=== PATIENT | female | born 1945 | race African-American/Black ===

== ENCOUNTER 2019-11-14 08:06 | Emergency (ER) | payer MEDICARE, SELFPAY ==
[2019-11-14 08:19] VITALS: BP 165/76; PULSE 108; RESP 18; TEMP 36.7; O2SAT 100
[2019-11-14 08:53] LABS: Basophils Percent Auto 0.4 % (0.2-1.2); Eosinophils Absolute Auto 0.1 K/mm3 (0-0.3); Eosinophils Percent Auto 0.8 % (0-4.4); Hematocrit 31.3 % (37.0-47.0); Hemoglobin 10.4 g/dL (12.0-15.0); Immature Granulocyte Absolute 0.02 K/mm3 (0.00-0.031); Immature Granulocyte Percent A 0.2 % (0-0.5); Lymphocytes Absolute Auto 2.23 K/mm3 (0.9-3.2); Lymphocytes Percent Auto 21.4 % (18.3-44.2); Mean Corpuscular HGB Conc 33.2 g/dl (32-36); Mean Corpuscular Volume 78.3 fl (80-100); Mean Platelet Volume 11.1 fl (7.4-10.4); Monocytes Absolute Auto 0.8 K/mm3 (0.1-0.6); Neutrophils Absolute Auto 7.2 K/mm3 (1.3-6.7); Neutrophils Percent Auto 69.2 % (45.5-73.1); Platelet Count Result 356 k/mm3 (150-375); Red Cell Distribution Width 14.8 % (11.5-14.5); White Blood Count 10.4 K/mm3 (4.5-10.0)
[2019-11-14 09:07] LABS: Alanine Aminotransferase 10 U/L (4-35); Albumin Level 4.5 g/dL (3.5-5.1); Alkaline Phosphatase 55 U/L (38-126); Aspartate Amino Transferase 19 U/L (14-36); Bilirubin,Total 0.2 mg/dL (0.2-1.3); Blood Urea Nitrogen 29 mg/dL (7-17); Calcium 9.5 mg/dL (8.4-10.2); Carbon Dioxide 23 mmol/L (22-30); Chloride 103 mmol/L (98-107); Estimated CRCL calculation 30 ml/min; Estimated Glomerular Filt Rate 41; Glucose 141 mg/dL (65-105); Potassium 3.5 mmol/L (3.4-5.0); Sodium 139 mmol/L (137-145)
[2019-11-14] MEDS: METOCLOPRAMIDE HCL 10 MG TABLET PO (09:21)
[2019-11-14 09:23] LABS: Hemoglobin A1C 6.1 % (<5.7)
--- NOTE | 2019-11-14 09:34 | ED.GENADULT ---
HPI - General Adult General Chief complaint: Unspecified Stated complaint: issues with diabetes Time Seen by Provider: 11/14/19 08:23 History of Present Illness HPI narrative: Patient presents with does not feel right he says for about a week she has had increased numbness and tingling in her feet, and nausea with no vomiting. She also complains of rocks in her eyes. 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 Since COVID she has been staying at home with self-isolation. She has been drinking a little bit of 1, and having some good food. She thought maybe she had overindulged, and started to cut back. Her last hemoglobin A1c was 6.5. And she has not been diagnosed with diabetic peripheral neuropathy. She has not been sick with fever cough cold chills or sweats. Her appetite is good her bowels are moving and she makes good urine. She does not smoke or use marijuana. Her follow-up appointment with her primary is in November. Onset (ago): day(s) Location: eyes, abdomen and lower extremity Severity: mild Related Data Home Medications Medication Instructions Recorded Confirmed amlodipine 10 mg PO DAILY 11/14/19 aspirin 81 mg PO DAILY 11/14/19 metformin 1,000 mg PO BID 11/14/19 simvastatin 20 mg PO DAILY 11/14/19 sitagliptin [Januvia] 100 mg PO DAILY 11/14/19 valsartan-hydrochlorothiazide 1 tablet PO DAILY 11/14/19 Allergies Allergy/AdvReac Type Severity Reaction Status Date / Time ampicillin Allergy Unknown itching Verified 11/14/19 08:25 phenylephrine Allergy Unknown burning Verified 11/14/19 08:25 Review of Systems Review of Systems: Narrative: CONSTITUTIONAL: Denies fever, chills, or sweats. EYES: Denies visual changes, or discharge. Says her eyes feel like they have rocks in them. ENT: Denies rhinorrhea, congestion, sore throat, or otalgia. CARDIOVASCULAR: Denies chest pain, palpitations, or edema. RESPIRATORY: Denies cough or dyspnea. GASTROINTESTINAL: Denies abdominal pain, vomiting, or diarrhea. GENITOURINARY: Denies dysuria or hematuria. SKIN: Denies rash or itching. MUSCULOSKELETAL: Denies back pain, joint pain, or myalgia. NEUROLOGIC: Denies headache, numbness, or weakness. PSYCHIATRIC: Denies anxiety or depression. All systems reviewed & are unremarkable except as noted in HPI and below PMFSH Past Medical History Medical History (Updated 11/14/19 @ 10:28 by Sheridan Harvey MD) Diabetes Hypertension Peripheral neuropathy Family History Family History Father Family history of Alzheimer's disease, Onset Age: 86 Family history of heart disease in male family member before age 55, Onset Age: 86 Patient's father is , Onset Age: 86 Mother Family history of diabetes mellitus in first degree relative Family history of congestive heart failure Family history of hearing loss Sibling Family history of malignant neoplasm of breast in first degree relative Social History Social History (Updated 11/14/19 @ 09:38 by Sheridan Harvey MD) Smoking status: Never smoker Alcohol intake: current Substance use: never Gender identity (if verbalized by the patient): Female Exam Narrative: Exam Narrative: GENERAL: Well-appearing, well-nourished, and in no acute distress. HEAD: Normocephalic, atraumatic. EYES: PERRLA and EOMI. slight redness to the sclera. ENT: Nares clear, no rhinorrhea or epistaxis. Mucous membranes moist. NECK: Supple. CHEST: Clear to auscultation. No respiratory distress. HEART: Regular rate and rhythm. No murmur heard. Normal peripheral pulses. ABDOMEN: Soft, nontender, nondistended, normal active bowel sounds. EXTREMITIES: Normal range of motion. No edema. SKIN: Warm, dry, no rash. NEURO: No focal deficits. Alert and oriented x3. PSYCH: Normal mood and affect. Course Vital Signs Vital signs: Vital Signs Temperature 98.1 F 11/14/19 08:19 Pulse Rate 108 H 11/14/19 08:19 Respi
[2019-11-14 09:39] LABS: Erythrocyte Sedimentation Rate 38 mm/hr (0-20)
--- NOTE | 2019-11-14 09:39 | ECG_ITS ---
Measurements Intervals Lena Rate: 85 P: 61 [place]: 199 QRS: 38 QRSD: 85 T: -14 QT: 374 QTc: 446 Interpretive Statements SINUS RHYTHM BASELINE WANDER- I, II, V3 NORMAL ECG Electronically Signed On 11-14-2019 13:01:21 CDT by Jim Chua D.O.
[2019-11-14 10:05] LABS: Add Urine Microscopic? YES; Appearance Urine Clear (Clear); Bilirubin Urine Negative (Negative); Blood Urine Negative (Negative); Color Urine Straw (Yellow); Glucose Urine UA Negative (Negative); Ketones Urine Negative (Negative); Leukocyte Esterase Ur Trace LEU/UL (Negative); Mucus Urine Rare /lpf; Nitrate Urine Negative (Negative); Protein Urine Negative (Negative); RBC Urine 0-2 /hpf (0-2); Specific Grav Ur 1.013 (1.001-1.035); Squamous Epithelial Cell Urine Few /hpf (Few); Urobilinogen Urine Negative mg/dL (<2.0)
[2019-11-14 10:52] VITALS: BP 130/73; PULSE 104; RESP 18; O2SAT 100
== END 2019-11-14 10:56 | disposition home or self-care (01) ==
PROVIDERS: Emergency Provider Emergency Medicine; PCP Internal Medicine
DX: R70.0 Elevated erythrocyte sedimentation rate (principal); R11.0 Nausea; I10 Essential (primary) hypertension; E11.42 Type 2 diabetes mellitus with diabetic polyneuropathy; Z79.84 Long term (current) use of oral hypoglycemic drugs
CPT/HCPCS: 36415; 80053; 81001; 83036; 85025; 85652; 93005; 99283; A9270

== ENCOUNTER 2019-11-16 09:13 | Outpatient (CLI) | payer MEDICARE, SELFPAY ==
--- NOTE | ~2019-11-16 | MM_ITS ---
EXAMINATION: MM screening josé miguel BI w elke HISTORY: Screening mammogram TECHNIQUE: Craniocaudal and mediolateral oblique 3-D tomosynthesis images were obtained and synthetic 2-D images were generated. CAD analysis was submitted and interpreted. COMPARISON: 11/10/2018, 11/15/2017 bilateral digital screening mammogram examinations BREAST PARENCHYMAL COMPOSITION: There are scattered areas of fibroglandular density. FINDINGS: There is no evidence of suspicious mass, calcification, or architectural distortion to sugg est malignancy in either breast. There has been no suspicious interval change. IMPRESSION: 1. No mammographic evidence of malignancy. 2. Recommend routine screening mammography in one year. BI-RADS Category 1: Negative Reviewed, dictated and finalized at location A.
== END 2019-11-16 09:14 | disposition home or self-care (01) ==
LOC: ANHIMG 09:18
PROVIDERS: PCP Internal Medicine; Visit Provider Internal Medicine
DX: Z12.31 Encounter for screening mammogram for malignant neoplasm of breast (principal)
CPT/HCPCS: 77063; 77067

== ENCOUNTER 2020-03-02 10:27 | Outpatient (CLI) | payer MEDICARE, SELFPAY ==
[2020-03-02 11:32] LABS: Basophils Percent Auto 0.3 % (0.2-1.2); Eosinophils Absolute Auto 0.2 K/mm3 (0-0.3); Eosinophils Percent Auto 1.7 % (0-4.4); Hematocrit 29.7 % (37.0-47.0); Hemoglobin 9.9 g/dL (12.0-15.0); Immature Granulocyte Absolute 0.03 K/mm3 (0.00-0.031); Immature Granulocyte Percent A 0.3 % (0-0.5); Lymphocytes Absolute Auto 2.71 K/mm3 (0.9-3.2); Mean Corpuscular HGB Conc 33.3 g/dl (32-36); Mean Corpuscular Hemoglobin 26.1 pg (26-34); Mean Corpuscular Volume 78.2 fl (80-100); Mean Platelet Volume 10.7 fl (7.4-10.4); Monocytes Absolute Auto 0.8 K/mm3 (0.1-0.6); Monocytes Percent Auto 8.1 % (2.6-8.5); Neutrophils Absolute Auto 6.6 K/mm3 (1.3-6.7); Neutrophils Percent Auto 63.6 % (45.5-73.1); Platelet Count Result 354 k/mm3 (150-375); Red Cell Distribution Width 14.6 % (11.5-14.5); White Blood Count 10.4 K/mm3 (4.5-10.0)
[2020-03-02 11:55] LABS: Alanine Aminotransferase 9 U/L (4-35); Albumin Level 4.2 g/dL (3.5-5.1); Alkaline Phosphatase 49 U/L (38-126); Anion Gap 9 mmol/L (8-16); Aspartate Amino Transferase 20 U/L (14-36); Bilirubin,Total 0.2 mg/dL (0.2-1.3); Blood Urea Nitrogen 26 mg/dL (7-17); Calcium 9.3 mg/dL (8.4-10.2); Carbon Dioxide 25 mmol/L (22-30); Chloride 103 mmol/L (98-107); Estimated Glomerular Filt Rate 49; Glucose 140 mg/dL (65-105); Potassium 3.9 mmol/L (3.4-5.0); Sodium 137 mmol/L (137-145)
== END 2020-03-02 10:28 | disposition home or self-care (01) ==
PROVIDERS: PCP Internal Medicine; Visit Provider Internal Medicine
DX: L29.9 Pruritus, unspecified (principal)
CPT/HCPCS: 36415; 80053; 85025

== ENCOUNTER 2020-05-04 09:50 | Outpatient (CLI) | payer MEDICARE, SELFPAY ==
[2020-05-04 10:28] LABS: CRP < 0.5 mg/dL (<1.0)
[2020-05-04 10:36] LABS: Iron 51 ug/dL (37-170)
[2020-05-04 10:45] LABS: Percent Iron Saturation 11 % (20-50)
[2020-05-07 16:30] LABS: SS-A <1.0; SS-B <1.0
[2020-05-08 05:12] LABS: Red Blood Cell Folate 659 ng/mL RBC (>280)
== END 2020-05-04 09:51 | disposition home or self-care (01) ==
LOC: ANHLAB 09:52
PROVIDERS: PCP Internal Medicine; Visit Provider Internal Medicine
DX: E50.7 Other ocular manifestations of vitamin A deficiency (principal); D64.9 Anemia, unspecified
CPT/HCPCS: 36415; 82607; 82747; 83540; 83550; 86038; 86140; 86235

== ENCOUNTER → 2020-07-28 10:18 | Outpatient (CLI) | payer MEDICARE, SELFPAY ==
--- NOTE | ~2020-07-28 | DEXA_ITS ---
Bone Density Report Name: Amy Newman Age: 75 Sex: Female Ethnicity: White Date of : 1945 Indication: postmenopausal; screening for osteoporosis; Referring Provider: Coby Han Study: Bone densitometry was performed. Exam Date: July 28, 2020 Accession number: [id number] Bone Density: Region BMD T-score Z-score Classification AP Spine (L1-L4) 1.079 0.3 2.6 Normal Femoral Neck (Left) 0.756 -0.8 1.2 Normal Total Hip (Left) 0.899 -0.4 1.4 Normal Femoral Neck (Right) 0.867 0.2 2.2 Normal Total Hip (Right) 0.836 -0.9 0.9 Normal Total Hip Mean 0.868 -0.7 1.2 Normal World Health Organization criteria for BMD impression classify patients as: Normal (T-score at or above -1.0), Osteopenia (T-score between -1.0 and -2.5), or Osteoporosis (T-score at or below -2.5). 10-year Fracture Risk: FRAX not reported because: All T-scores for Spine Total, Hip Total, Femoral Neck at or above -1.0 Clinical Information Provided by Patient: Patient maximum height was 61 Menopause Age: 51 Does not regularly consume dairy products Drinks caffeinated beverages Onset of menses at age 15 Number of children 1 Impression: The patient has normal bone mass. Discussion: BONE DENSITY IS ABOVE THE MINIMUM DESIRABLE LEVEL AT ALL SKELETAL SITES TESTED. This patient?s bone mineral density is above the minimum desirable level (T-score -1.0 or better) at all sites measured. The patient should follow a healthful lifestyle (good nutrition with adequate calcium and vitamin D, and appropriate weight-bearing exercise). Follow-Up: Consider repeating this study in 5 years or sooner if there is some new clinical indication. Reported by: CELSO on 07/28/2020 10:48:00 AM. Reviewed, dictated and finalized at location A. [facility]
== END ==
PROVIDERS: PCP Internal Medicine; Visit Provider Nurse Practitioner
DX: Z78.0 Asymptomatic menopausal state (principal)
CPT/HCPCS: 77080

== ENCOUNTER 2020-12-06 13:48 | Outpatient (CLI) | payer MEDICARE, SELFPAY ==
--- NOTE | ~2020-12-06 | MM_ITS ---
EXAMINATION: MM screening josé miguel BI w elke HISTORY: Screening mammogram TECHNIQUE: Craniocaudal and mediolateral oblique 3-D tomosynthesis images were obtained and synthetic 2-D images were generated. CAD analysis was submitted and interpreted. COMPARISON: No prior mammogram is available for comparison at this institution. BREAST PARENCHYMAL COMPOSITION: There are scattered areas of fibroglandular density. FINDINGS: Occasional bilateral benign calcifications. Stable mild fibroglandular asymmetry There is n o evidence of suspicious mass, calcification, or architectural distortion to suggest malignancy in ei ther breast. There has been no suspicious interval change. IMPRESSION: 1. No mammographic evidence of malignancy. 2. Recommend routine screening mammography in one year. BI-RADS Category 2: Benign finding(s). Reviewed, dictated and finalized at location A.
== END 2020-12-06 13:49 | disposition home or self-care (01) ==
PROVIDERS: PCP Internal Medicine; Visit Provider Nurse Practitioner
DX: Z12.31 Encounter for screening mammogram for malignant neoplasm of breast (principal)
CPT/HCPCS: 77063; 77067

== ENCOUNTER 2021-02-21 09:24 | Outpatient (CLI) | payer MEDICARE, SELFPAY ==
--- NOTE | ~2021-02-21 | MR_ITS ---
EXAMINATION: MR cervical spine wo con DATE: 02/21/2021 10:25 INDICATION: Disease of spinal cord, unspecified. Tingling in the neck. TECHNIQUE: Magnetic resonance imaging (MRI) of the cervical spine was performed without intravenous c ontrast. Sequences included sagittal T2-weighted FSE, sagittal T2-weighted FS FSE, sagittal T1-weight ed FSE, axial MERGE, and axial T2-weighted FSE. COMPARISON: None FINDINGS: There is hypolordosis of cervical spine. Vertebral body heights and intervertebral disc hei ghts are normal. There is increased T2-weighted signal intensity in the spinal cord at the posterior midline at C2. The following disc levels are specifically discussed: C2-C3: The disc does not extend beyond the endplate margin. There is no uncovertebral joint osteoarth ritis. There is mild bilateral facet joint osteoarthritis. There is no neural foraminal stenosis. The re is no central canal stenosis. C3-C4: There is a central protrusion. There is mild bilateral uncovertebral joint osteoarthritis. The re is mild left facet joint osteoarthritis. There is no neural foraminal stenosis. There is mild cent ral canal stenosis. C4-C5: The disc is mildly bulging. There is mild bilateral uncovertebral joint osteoarthritis. There is mild right facet joint osteoarthritis. There is no neural foraminal stenosis. There is mild centra l canal stenosis. C5-C6: The disc is mildly bulging. There is mild bilateral uncovertebral joint osteoarthritis. There is mild bilateral facet joint osteoarthritis. There is no neural foraminal stenosis. There is mild ce ntral canal stenosis. C6-C7: The disc does not extend beyond the endplate margin. There is no uncovertebral joint osteoarth ritis. There is mild left facet joint osteoarthritis. There is no neural foraminal stenosis. There is no central canal stenosis. C7-T1: The disc does not extend beyond the endplate margin. There is no uncovertebral joint osteoarth ritis. There is mild left facet joint osteoarthritis. There is mild left neural foraminal stenosis. T here is no central canal stenosis. IMPRESSION: 1. Spinal cord lesion at C2. The differential diagnosis includes multiple sclerosis, acute transverse myelitis, and less likely neoplasm such as astrocytoma or ependymoma. 2. Mild cervical spondylosis. Reviewed, dictated and finalized at location A. IMPRESSION: 1. Spinal cord lesion at C2. The differential diagnosis includes multiple scler osis, acute transverse myelitis, and less likely neoplasm such as astrocytoma o r ependymoma. 2. Mild cervical spondylosis.
== END 2021-02-21 09:25 | disposition home or self-care (01) ==
LOC: ANHIMG 09:28
PROVIDERS: PCP Internal Medicine; Visit Provider Psychiatry & Neurology Neurology
DX: G95.9 Disease of spinal cord, unspecified (principal); M47.892 Other spondylosis, cervical region
CPT/HCPCS: 72141

== ENCOUNTER 2022-01-05 15:23 | Outpatient (CLI) | payer MEDICARE, SELFPAY ==
--- NOTE | ~2022-01-05 | MM_ITS ---
EXAMINATION: MM screening josé miguel BI w elke HISTORY: Screening TECHNIQUE: Craniocaudal and mediolateral oblique 3-D tomosynthesis images were obtained and synthetic 2-D images were generated. CAD analysis was submitted and interpreted. COMPARISON: 11/05/2017 BREAST PARENCHYMAL COMPOSITION: There are scattered areas of fibroglandular density. FINDINGS: There is no evidence of suspicious mass, calcification, or architectural distortion to sugg est malignancy in either breast. There has been no suspicious interval change. IMPRESSION: 1. No mammographic evidence of malignancy. 2. Recommend routine screening mammography in one year. BI-RADS Category 1: Negative Reviewed, dictated and finalized at location A.
== END 2022-01-05 15:24 | disposition home or self-care (01) ==
LOC: ANHIMG 15:26
PROVIDERS: PCP Internal Medicine; Visit Provider Internal Medicine
DX: Z12.31 Encounter for screening mammogram for malignant neoplasm of breast (principal)
CPT/HCPCS: 77063; 77067

== ENCOUNTER 2022-08-27 17:36 | Emergency (ER) | payer MEDICARE, SELFPAY ==
--- NOTE | ~2022-08-27 | XR_ITS ---
EXAM: XR foot LT min 3V DATE: 08/27/2022 18:13 HISTORY: left lateral foot pain s/p walking 2 days ago . COMPARISON: 03/18/2019. FINDINGS: Decreased mineralization. No fracture or dislocation. No lytic or blastic lesion. Mild sca ttered degenerative changes. Achilles enthesopathy. No erosion or periosteal change. Soft tissues wit hin normal limits. IMPRESSION: No acute osseous finding in the left foot. Reviewed, dictated and finalized at location K. [employer]
[2022-08-27 17:45] VITALS: BP 149/84; PULSE 104; RESP 16; TEMP 37.2; O2SAT 98
--- NOTE | 2022-08-27 17:53 | ED.EXTPRO ---
HPI - Extremity Problem General Chief complaint: Extremity Problem,Nontraumatic Stated complaint: Left Foot Pain Time Seen by Provider: 08/27/22 17:53 Source: patient, RN notes reviewed and old records reviewed Mode of arrival: ambulatory Limitations: no limitations History of Present Illness HPI Narrative: 77-year-old female presents to the [facility] with complaints of left lateral foot pain since Saturday. Swelling noted to the lateral aspect left foot over metatarsals 3 4 in 5. Patient denies any significant injury other than walking. Patient states that she normally would does water aerobics and walking, walking through a park on Saturday. 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 Onset (ago): day(s) (2) Related Data Home Medications Medication Instructions Recorded Confirmed aspirin 81 mg chewable tablet 81 mg PO DAILY 11/14/19 06/12/22 ferrous sulfate 140 mg (45 mg 140 mg PO DAILY 07/12/20 06/12/22 iron) tablet,extended release brimonidine 0.2 %-timolol 0.5 % 1 drp EACH EYE ONCE 05/30/21 06/12/22 eye drops prednisolone acetate 1 % eye 1 drp EACH EYE ONCE 05/30/21 06/12/22 drops,suspension Allergies Allergy/AdvReac Type Severity Reaction Status Date / Time prednisone Allergy Intermediate Swelling Verified 08/27/22 17:59 of face and lips, pruritis in area ampicillin Allergy Mild swelling Verified 08/27/22 17:59 and itching phenylephrine Allergy Mild burning Verified 08/27/22 17:59 and swelling , red eyes Review of Systems Review of Systems: All systems reviewed & are unremarkable except as noted in HPI and below Constitutional: Constitutional: Reports no additional constitutional complaints Eyes: Eyes: Reports no additional eye complaints ENT: Reports system reviewed and no additional complaints, except as documented Cardiovascular: Cardiovascular: Reports no additional cardiovascular complaints, Denies chest pain and Denies dyspnea Respiratory: Respiratory: Reports no additional respiratory complaints, Denies chest congestion, Denies cough and Denies dyspnea Gastrointestinal: Gastrointestinal: Reports no additional gastrointestinal complaints, Denies abdominal pain, Denies nausea and Denies vomiting Musculoskeletal: Musculoskeletal: Reports as per HPI and Denies numbness Integumentary/Breasts: Skin/Breast: Reports system reviewed and no additional complaints, except as docu Neurologic: Reports system reviewed and no additional complaints, except as documented Psychiatric: Psychiatric: Reports no additional psychiatric complaints Allergic/Immunologic: Allergic/Immunologic: Reports no additional allergic/immunologic complaints PMF Past Medical History Medical History Colonic polyp Hypertension Paresthesia of skin Peripheral neuropathy Postmenopausal Screening for colon cancer Family History Family History Father Family history of Alzheimer's disease, Onset Age: 86 Family history of heart disease in male family member before age 55, Onset Age: 86 Patient's father is , Onset Age: 86 Mother Family history of diabetes mellitus in first degree relative Family history of congestive heart failure Family history of hearing loss Sibling Family history of malignant neoplasm of breast in first degree relative Social History Social History Smoking packs per day: 1 Smoking cigarettes per day: 20.0 Years smoked: 10 Smoking pack-years: 10.00 Smoking status: Former smoker Tobacco type: cigarettes Second hand tobacco smoke exposure: No Smoking end date: 07/01/09 Alcohol intake: current Drinks per week: 1 Substance use: never Substance use type: does not use Lack of Transportation: No Lack of Food: Never True Current Housing: I Have Housing Concerned About
[2022-08-27 18:02] LABS: Glucose Point of Care 154 mg/dl (65-105)
== END 2022-08-27 18:45 | disposition home or self-care (01) ==
PROVIDERS: Emergency Provider Nurse Practitioner; PCP Internal Medicine
DX: M79.672 Pain in left foot (principal); I10 Essential (primary) hypertension; E11.9 Type 2 diabetes mellitus without complications; Z87.891 Personal history of nicotine dependence
CPT/HCPCS: 73630; 82948; 99213; G0463

== ENCOUNTER 2023-03-29 13:45 | Outpatient (CLI) | payer MEDICARE, SELFPAY ==
--- NOTE | ~2023-03-29 | MM_ITS ---
EXAMINATION: MM screening josé miguel BI w elke HISTORY: Screening mammogram TECHNIQUE: Craniocaudal and mediolateral oblique 3-D tomosynthesis images were obtained and synthetic 2-D images were generated. CAD analysis was submitted and interpreted. COMPARISON: 01/05/2022, 12/06/2020, 11/16/2019 bilateral screening mammogram examinations BREAST PARENCHYMAL COMPOSITION: There are scattered areas of fibroglandular density. FINDINGS: There is no evidence of suspicious mass, calcification, or architectural distortion to sugg est malignancy in either breast. There has been no suspicious interval change. IMPRESSION: 1. No mammographic evidence of malignancy. 2. Recommend routine screening mammography in one year. BI-RADS Category 1: Negative Reviewed, dictated and finalized at location A.
== END 2023-03-29 13:46 | disposition home or self-care (01) ==
LOC: ANHIMG 14:08
PROVIDERS: PCP Nurse Practitioner Family; Visit Provider Family Medicine
DX: Z12.31 Encounter for screening mammogram for malignant neoplasm of breast (principal)
CPT/HCPCS: 77063; 77067

== ENCOUNTER 2023-04-04 06:17 | Emergency (ER) | payer MEDICARE, SELFPAY ==
--- NOTE | ~2023-04-04 | CT_ITS ---
CT of the Abdomen and Pelvis: Indication: Abdominal pain Technique: 2.5 mm axial scans were obtained through the abdomen and pelvis following intravenous adm inistration of 100 cc of Omnipaque 350. Dose reduction technique was used on this scan by utilizing a utomated exposure control and iterative reconstruction technique. The dose-length product (DLP) was 1 031.94 mGy-cm. Findings: Scans through the lung bases are unremarkable. The liver, spleen, pancreas, and adrenal glands are within normal limits. There is a 2.5 cm periphera lly calcified, probable saccular, aneurysm which appears to arise from the distal portion of the righ t renal artery, near the right renal hilum. There is a 3 mm nonobstructing left renal stone. Small ca lcified gallstone noted. No evidence of aortic aneurysm. No lymphadenopathy. No bowel obstruction or bowel wall thickening. Sigmoid diverticulosis noted. Normal appendix. Images through the pelvis were performed. Urinary bladder unremarkable. No pelvic mass seen. No ascit es. 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 Given size of the aneurysm, consultation/follow-up for endovascular therapy is barbara mmended. Cholelithiasis. 3 mm nonobstructing left renal stone. Reviewed, dictated and finalized at location . 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 Given size of the aneurysm, consultatio n/follow-up for endovascular therapy is recommended. Cholelithiasis. 3 mm nonobstructing left renal stone.
[2023-04-04 06:18] VITALS: BP 146/83; PULSE 106; RESP 16; TEMP 36.1; O2SAT 100
[2023-04-04 07:03] LABS: Basophils Absolute Auto 0.1 K/mm3 (0.0-0.1); Basophils Percent Auto 0.5 % (0.2-1.2); Eosinophils Absolute Auto 0.3 K/mm3 (0-0.3); Eosinophils Percent Auto 2.8 % (0-4.4); Hematocrit 36.7 % (37.0-47.0); Hemoglobin 12.4 g/dL (12.0-15.0); Immature Granulocyte Absolute 0.04 K/mm3 (0.00-0.031); Immature Granulocyte Percent A 0.4 % (0-0.5); Lymphocytes Absolute Auto 1.82 K/mm3 (0.9-3.2); Lymphocytes Percent Auto 17.2 % (18.3-44.2); Mean Corpuscular HGB Conc 33.8 g/dl (32-36); Mean Corpuscular Hemoglobin 27.8 pg (26-34); Mean Corpuscular Volume 82.3 fl (80-100); Mean Platelet Volume 11.1 fl (7.4-10.4); Monocytes Absolute Auto 0.8 K/mm3 (0.1-0.6); Monocytes Percent Auto 7.3 % (2.6-8.5); Neutrophils Absolute Auto 7.6 K/mm3 (1.3-6.7); Neutrophils Percent Auto 71.8 % (45.5-73.1); Platelet Count Result 354 k/mm3 (150-375); Red Blood Count 4.46 M/mm3 (4.2-5.4); Red Cell Distribution Width 13.2 % (11.5-14.5); White Blood Count 10.6 K/mm3 (4.5-10.0)
[2023-04-04] MEDS: MORPHINE SULFATE (*CRX) 4 MG/ML INJ IV PUSH (07:11)
[2023-04-04] MEDS: SODIUM CHLORIDE 0.9% IV 1,000 ML 999 ML IV CONT (07:12)
[2023-04-04] MEDS: ONDANSETRON INJ 4 MG/2 ML VIAL IV PUSH (07:12)
[2023-04-04 07:13] LABS: Alanine Aminotransferase 16 U/L (6-35); Albumin Level 4.4 g/dL (3.5-5.1); Alkaline Phosphatase 75 U/L (38-126); Anion Gap 10 mmol/L (8-16); Aspartate Amino Transferase 24 U/L (14-36); Bilirubin,Total 0.6 mg/dL (0.2-1.3); Blood Urea Nitrogen 27 mg/dL (7-17); Calcium 9.6 mg/dL (8.4-10.2); Carbon Dioxide 24 mmol/L (22-30); Chloride 106 mmol/L (98-107); Estimated CRCL calculation 33 ml/min; Estimated Glomerular Filt Rate 48; Glucose 206 mg/dL (65-110); Lipase 175 U/L (23-300); Potassium 3.8 mmol/L (3.4-5.0); Sodium 140 mmol/L (137-145)
[2023-04-04 07:46] LABS: Appearance Urine Clear (Clear); Bacteria Urine None Seen /hpf; Bilirubin Urine Negative (Negative); Blood Urine Trace (Negative); Color Urine Yellow (Yellow); Glucose Urine UA 3+ mg/dL (Negative); Ketones Urine Negative (Negative); Leukocyte Esterase Ur Negative LEU/UL (Negative); Nitrate Urine Negative (Negative); Non Pathogenic Casts 0-2; Protein Urine Negative (Negative); RBC Urine 0-2 /hpf (0-2); Specific Grav Ur 1.015 (1.001-1.035); Squamous Epithelial Cell Urine Occasional /hpf (Few); Urobilinogen Urine 0.2 mg/dL (<2.0); WBC Urine 0-5 /hpf; pH Urine 6.5 (5.0-9.0)
[2023-04-04 07:53] LABS: Add Urine Microscopic? YES
--- NOTE | 2023-04-04 09:25 | ED.ABDPAIN ---
HPI - Abdominal Pain General Chief Complaint: Abdominal Pain Stated Complaint: UTI on the , symptoms still present, N/V Time Seen by Provider: 04/04/23 06:57 History of Present Illness HPI narrative: This is a 77-year-old female, who comes in the emergency department complaining of lower abdominal cramping and right flank tenderness for the past several days. The patient states she was recently seen by her primary care doctor and given antibiotics for UTI and a fungal infection with improvement of her itching. She denies nausea, vomiting, chest pain, bleeding or loss of consciousness. Related Data Home Medications Medication Instructions Recorded Confirmed aspirin 81 mg chewable tablet 81 mg PO DAILY 11/14/19 03/27/23 ferrous sulfate 140 mg (45 mg 140 mg PO DAILY 07/12/20 03/27/23 iron) tablet,extended release brimonidine 0.2 %-timolol 0.5 % 1 drp EACH EYE ONCE 05/30/21 03/27/23 eye drops omega-3 fatty acids 1,000 mg 1,000 mg PO DAILY 09/26/22 03/27/23 capsule (Fish Oil Concentrate) Allergies Allergy/AdvReac Type Severity Reaction Status Date / Time prednisone Allergy Intermediate Swelling Verified 03/27/23 08:43 of face and lips, pruritis in area ampicillin Allergy Mild swelling Verified 03/27/23 08:43 and itching phenylephrine Allergy Mild burning Verified 03/27/23 08:43 and swelling , red eyes Review of Systems Review of Systems: CONSTITUTIONAL: Denies fever, chills, or sweats. CARDIOVASCULAR: Denies chest pain, palpitations, or edema. RESPIRATORY: Denies cough or dyspnea. GASTROINTESTINAL: Suprapubic abdominal pain denies nausea, vomiting, or diarrhea. GENITOURINARY: Denies dysuria or hematuria. SKIN: Denies rash or itching. MUSCULOSKELETAL: Denies back pain, joint pain, or myalgia. NEUROLOGIC: Denies headache, numbness, dizziness, or weakness. PSYCHIATRIC: Denies anxiety or depression. [facility] Past Medical History Medical History Colonic polyp Hypertension Paresthesia of skin Peripheral neuropathy Postmenopausal Screening for colon cancer Family History Family History Father Family history of Alzheimer's disease, Onset Age: 86 Family history of heart disease in male family member before age 55, Onset Age: 86 Patient's father is , Onset Age: 86 Mother Family history of diabetes mellitus in first degree relative Family history of congestive heart failure Family history of hearing loss Sibling Family history of malignant neoplasm of breast in first degree relative Social History Social History Smoking packs per day: 0.25 Smoking cigarettes per day: 5.0 Years smoked: 10 Smoking pack-years: 2.50 Smoking status: Former smoker Tobacco type: cigarettes Second hand tobacco smoke exposure: No Smoking end date: 07/01/09 Alcohol intake: current Drinks per week: 1 Alcohol use details: occasionally Substance use: never Substance use type: does not use Lack of Transportation: No Lack of Food: Never True Current Housing: I Have Housing Concerned About Future Housing: No Difficulty Paying Gas/Electric Bills: No Difficulty Paying for Meds: No Currently Unemployed: No Education: Decline to Answer Difficulty w/ Childcare or Family Care: No Gender identity (if verbalized by the patient): Female Exam Narrative: GENERAL: Well-developed, well-nourished, and in no acute distress. HEAD: Normocephalic, atraumatic. EYES: PERRLA and EOMI. CHEST: Clear to auscultation. No respiratory distress. No wheezes rales or rhonchi HEART: Regular rate and rhythm. No murmur heard. Normal peripheral pulses. ABDOMEN: Soft, mild suprapubic tenderness to palpation, without rebound or guarding, nondistended, normal active bowel sounds. N
[2023-04-04 09:31] VITALS: BP 152/76; PULSE 88; RESP 17; O2SAT 100
[2023-04-04 09:34] VITALS: O2SAT 100
[2023-04-04 09:45] VITALS: O2SAT 100
[2023-04-04 10:21] VITALS: BP 123/70
== END 2023-04-04 10:22 | disposition home or self-care (01) ==
PROVIDERS: Emergency Medicine; Emergency Provider Preventive Medicine Aerospace Medicine; PCP Nurse Practitioner Family
DX: I72.2 Aneurysm of renal artery (principal); R22.2 Localized swelling, mass and lump, trunk; R39.9 Unspecified symptoms and signs involving the genitourinary system; I10 Essential (primary) hypertension; G62.9 Polyneuropathy, unspecified; Z86.010 Personal history of colon polyps; Z87.891 Personal history of nicotine dependence; Z79.82 Long term (current) use of aspirin
CPT/HCPCS: 36415; 74177; 80053; 81001; 83690; 85025; 96361; 96374; 96375; 99284; J2270; J2405; J7030; Q9967

== ENCOUNTER 2023-04-18 10:28 | Outpatient (CLI) | payer MEDICARE, SELFPAY ==
--- NOTE | ~2023-04-18 | CT_ITS ---
EXAMINATION: CT biopsy muscle DATE: 04/18/2023 12:24 INDICATION: Cutaneous abscess of buttock. TECHNIQUE: The procedure including the risks and benefits was discussed with the patient. Risks discu ssed included bleeding and infection. The patient understood the risks and agreed to proceed. The sk in overlying the right buttock was prepped and draped in usual sterile fashion. Anesthetic was admin istered with 1% lidocaine subcutaneously. A pair of 16 gauge outer needles advanced under CT guidance to the age of the 2 regions of soft tissue density within the larger macroscopic fat attenuation sub cutaneous mass at the right buttock. 18 gauge core biopsy needles were then advanced through the guid e needle was into both of the soft tissue density regions of concern. 5 core biopsy specimens were ob tained from each lesion and placed in formalin. During the biopsy there was spontaneous reflux of a s mall amount of opaque yellowish cream-colored fluid which was then aspirated from the needle. A total of approximately 2 mm of fluid was collected and sent to the lab for cytology, Gram stain and cultur es. The outer needles were removed and the entry right shoulder cleaned and dressed. There were no i mmediate complications. The dose-length product was 102.62 mGy-cm. FINDINGS: CT images demonstrate a 16 x 6 cm macroscopic fat attenuation mass with nearly indiscernibl e thin peripheral capsule. Sagittal images demonstrate one of the outer needle tips along side the sm aller and more lateral of soft tissue density within the fatty mass. The second guide needle tip is a long side the larger 3.7 x 2.4 cm nodular density within the fatty mass which demonstrates heterogene ous soft tissue and calcific density. IMPRESSION: 1. Successful CT-guided biopsy of 2 regions of soft tissue density within a larger 16 x 6 cm macrosco pic fat attenuation mass. Reviewed, dictated and finalized at location A. IMPRESSION: 1. Successful CT-guided biopsy of 2 regions of soft tissue density within a lar sixto 16 x 6 cm macroscopic fat attenuation mass.
[2023-04-18 12:30] VITALS: BP 133/77; PULSE 70; RESP 19; O2SAT 100
[2023-04-18 12:31] VITALS: BP 137/111; PULSE 75; RESP 19; O2SAT 97
== END 2023-04-18 10:29 | disposition home or self-care (01) ==
PROVIDERS: PCP Nurse Practitioner Family; Visit Provider Nurse Practitioner Family
DX: L02.31 Cutaneous abscess of buttock (principal); R22.2 Localized swelling, mass and lump, trunk
CPT/HCPCS: 20206; 77012; 87070; 87075; 87205; 88108; 88305

== ENCOUNTER 2023-04-23 17:20 | Emergency (ER) | payer MEDICARE, SELFPAY ==
[2023-04-23 17:31] VITALS: BP 171/74; PULSE 113; RESP 16; TEMP 37.7; O2SAT 100
[2023-04-23 17:44] LABS: Glucose Point of Care 103 mg/dl (65-105)
--- NOTE | 2023-04-23 17:47 | ED.GENADULT ---
HPI - General Adult General Chief complaint: Nausea/Vomiting/Diarrhea Stated complaint: Nausea/Vomiting Time Seen by Provider: 04/23/23 17:47 Source: patient, RN notes reviewed and old records reviewed Mode of arrival: ambulatory Limitations: no limitations History of Present Illness HPI narrative: 77-year-old female with a history diabetes, presents for 24 hours nausea vomiting and abdominal pain. Tender right upper quadrant. Currently dry heaving. Has not eaten anything since yesterday. Appears mildly ill Denies any urinary symptoms. Denies chest pain or shortness of breath. Onset (ago): day(s) (1) Related Data Home Medications Medication Instructions Recorded Confirmed aspirin 81 mg chewable tablet 81 mg PO DAILY 11/14/19 04/23/23 ferrous sulfate 140 mg (45 mg 140 mg PO DAILY 07/12/20 04/23/23 iron) tablet,extended release brimonidine 0.2 %-timolol 0.5 % 1 drp EACH EYE ONCE 05/30/21 04/23/23 eye drops omega-3 fatty acids 1,000 mg 1,000 mg PO DAILY 09/26/22 04/23/23 capsule (Fish Oil Concentrate) Allergies Allergy/AdvReac Type Severity Reaction Status Date / Time prednisone Allergy Intermediate Swelling Verified 04/23/23 17:36 of face and lips, pruritis in area ampicillin Allergy Mild swelling Verified 04/23/23 17:36 and itching phenylephrine Allergy Mild burning Verified 04/23/23 17:36 and swelling , red eyes Review of Systems Review of Systems: All systems reviewed & are unremarkable except as noted in HPI and below Constitutional: Constitutional: Reports no additional constitutional complaints Eyes: Eyes: Reports no additional eye complaints ENT: Reports system reviewed and no additional complaints, except as documented Cardiovascular: Cardiovascular: Reports no additional cardiovascular complaints, Denies chest pain and Denies dyspnea Respiratory: Respiratory: Reports no additional respiratory complaints, Denies chest congestion, Denies cough and Denies dyspnea Gastrointestinal: Gastrointestinal: Reports as per HPI, Reports abdominal pain, Reports diarrhea, Reports nausea and Reports vomiting Musculoskeletal: Musculoskeletal: Reports no additional musculoskeletal complaints Integumentary/Breasts: Skin/Breast: Reports system reviewed and no additional complaints, except as docu Neurologic: Reports system reviewed and no additional complaints, except as documented Psychiatric: Psychiatric: Reports no additional psychiatric complaints Allergic/Immunologic: Allergic/Immunologic: Reports no additional allergic/immunologic complaints PMFSH Past Medical History Medical History (Updated 04/23/23 @ 18:02 by Olivia Vasquez APRN) Anemia Colonic polyp Hypertension Paresthesia of skin Peripheral neuropathy Postmenopausal Screening for colon cancer Type 2 diabetes mellitus Family History Family History Father Family history of Alzheimer's disease, Onset Age: 86 Family history of heart disease in male family member before age 55, Onset Age: 86 Patient's father is , Onset Age: 86 Mother Family history of diabetes mellitus in first degree relative Family history of congestive heart failure Family history of hearing loss Sibling Family history of malignant neoplasm of breast in first degree relative Social History Social History Smoking packs per day: 0.25 Smoking cigarettes per day: 5.0 Years smoked: 10 Smoking pack-years: 2.50 Smoking status: Former smoker Tobacco type: cigarettes Second hand tobacco smoke exposure: No Smoking end date: 07/01/09 Alcohol intake: current Drinks per week: 1 Alcohol use details: occasionally Substance use: never Substance use type: does not use Lack of Transportation: No Lack of Food: Never True Current Housing: I Have Housing Concerned About Fut
== END 2023-04-23 17:56 | disposition short-term general hospital (02) ==
PROVIDERS: Emergency Provider Nurse Practitioner; PCP Family Medicine
DX: R11.2 Nausea with vomiting, unspecified (principal); R19.7 Diarrhea, unspecified; R10.811 Right upper quadrant abdominal tenderness; I10 Essential (primary) hypertension; Z87.891 Personal history of nicotine dependence; E11.42 Type 2 diabetes mellitus with diabetic polyneuropathy; D64.9 Anemia, unspecified; Z79.82 Long term (current) use of aspirin
CPT/HCPCS: 82948; 99212; G0463

== ENCOUNTER 2023-04-23 18:14 | Emergency (ER) | payer MEDICARE, SELFPAY ==
--- NOTE | ~2023-04-23 | CT_ITS ---
EXAMINATION: CT abdomen pelvis w con DATE: 04/23/2023 23:48 INDICATION: Right abdominal pain. Nausea and vomiting and diarrhea. TECHNIQUE: Computed tomography (CT) of the abdomen and pelvis was performed with 100 mL Omnipaque 350 intravenous contrast. Automated exposure control and iterative reconstruction technique were employe d. The dose-length product was 984.85 mGy-cm. COMPARISON: CT abdomen and pelvis 04/04/2023 FINDINGS: The visualized portions of the lung bases demonstrate mild atelectasis and mild chronic walter g disease. No pleural effusion. The heart size is normal. No pericardial effusion. There is a small s liding hiatal hernia. The liver is normal. There is a gallstone in the gallbladder, which is normal i n size. The spleen, pancreas, and adrenal glands are normal. There is cortical thinning of the kidney s. 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 There is diverticulosis of the colon wi thout evidence of diverticulitis. There are no dilated loops of bowel. The appendix is normal. There are no pathologically enlarged lymph nodes. There is no free intraperitoneal fluid. There is a 16.2 x 5.8 cm subcutaneous mass in right buttock with areas of soft tissue attenuation and calcification, l ikely a lipoma with fat necrosis. There are no pathologically enlarged lymph nodes. There is no free intraperitoneal fluid. There is mild thoracic and lumbar spondylosis. IMPRESSION: 1. Small sliding hiatal hernia. 2. 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 Consider endovascular intervention. Reviewed, dictated and finalized at location E.
[2023-04-23 18:50] VITALS: BP 164/89; PULSE 111; RESP 20; TEMP 36.3; O2SAT 98
[2023-04-23 19:11] LABS: Basophils Percent Auto 0.1 % (0.2-1.2); Eosinophils Absolute Auto 0.1 K/mm3 (0-0.3); Eosinophils Percent Auto 0.9 % (0-4.4); Hematocrit 38.7 % (37.0-47.0); Hemoglobin 12.9 g/dL (12.0-15.0); Immature Granulocyte Absolute 0.03 K/mm3 (0.00-0.031); Immature Granulocyte Percent A 0.3 % (0-0.5); Lymphocytes Absolute Auto 1.95 K/mm3 (0.9-3.2); Lymphocytes Percent Auto 16.8 % (18.3-44.2); Mean Corpuscular HGB Conc 33.3 g/dl (32-36); Mean Corpuscular Hemoglobin 27.7 pg (26-34); Mean Corpuscular Volume 83.2 fl (80-100); Mean Platelet Volume 11.1 fl (7.4-10.4); Monocytes Absolute Auto 1.1 K/mm3 (0.1-0.6); Monocytes Percent Auto 9.4 % (2.6-8.5); Neutrophils Absolute Auto 8.4 K/mm3 (1.3-6.7); Neutrophils Percent Auto 72.5 % (45.5-73.1); Platelet Count Result 340 k/mm3 (150-375); Red Blood Count 4.65 M/mm3 (4.2-5.4); Red Cell Distribution Width 13.9 % (11.5-14.5); White Blood Count 11.6 K/mm3 (4.5-10.0)
[2023-04-23 19:20] LABS: Alanine Aminotransferase 16 U/L (6-35); Albumin Level 4.7 g/dL (3.5-5.1); Alkaline Phosphatase 67 U/L (38-126); Anion Gap 13 mmol/L (8-16); Aspartate Amino Transferase 23 U/L (14-36); Bilirubin,Total 0.7 mg/dL (0.2-1.3); Blood Urea Nitrogen 21 mg/dL (7-17); Calcium 9.7 mg/dL (8.4-10.2); Carbon Dioxide 23 mmol/L (22-30); Chloride 105 mmol/L (98-107); Estimated CRCL calculation 29 ml/min; Estimated Glomerular Filt Rate 41; Glucose 108 mg/dL (65-110); Lipase 160 U/L (23-300); Sodium 141 mmol/L (137-145)
[2023-04-23 20:56] VITALS: BP 133/76; PULSE 105; RESP 16; TEMP 36.7; O2SAT 100
[2023-04-23 21:30] VITALS: BP 143/76; PULSE 92; RESP 19; O2SAT 100
[2023-04-23 22:03] LABS: Appearance Urine Turbid (Clear); Bacteria Urine 4+ /hpf; Bilirubin Urine Negative (Negative); Blood Urine Negative (Negative); Color Urine Yellow (Yellow); Glucose Urine UA 2+ mg/dL (Negative); Ketones Urine 1+ mg/dL (Negative); Leukocyte Esterase Ur 2+ LEU/UL (Negative); Need Manual Microscopic Reviewed; Nitrate Urine Negative (Negative); Protein Urine 1+ mg/dL (Negative); RBC Urine 0-2 /hpf (0-2); Specific Grav Ur 1.015 (1.001-1.035); Squamous Epithelial Cell Urine Many /hpf (Few); Urobilinogen Urine 0.2 mg/dL (<2.0); WBC Urine 21-50 /hpf; pH Urine 5.5 (5.0-9.0)
[2023-04-23 22:04] LABS: Add Urine Microscopic? YES
--- NOTE | 2023-04-23 22:16 | ED.ABDPAIN ---
HPI - Abdominal Pain General Chief Complaint: Abdominal Pain Stated Complaint: n/v/d abdominal pain Time Seen by Provider: 04/23/23 21:29 Source: patient Mode of arrival: ambulatory Limitations: no limitations History of Present Illness HPI narrative: Patient is a 77 y/o female who presents to the ED with c/o N/V/D. Patient reports she developed diarrhea yesterday. She had several episodes of loose stools. She denied any rectal bleeding or melena. She then developed nausea and vomiting yesterday, which persisted into today. She also reports having lower abdominal pain today, described as an achiness. She went to an urgent care and was referred here for further evaluation. Patient denies any sick contacts or bad food exposure. Denies cough or cold symptoms. Denies fevers. Denies urinary symptoms. Related Data Home Medications Medication Instructions Recorded Confirmed aspirin 81 mg chewable tablet 81 mg PO DAILY 11/14/19 04/23/23 ferrous sulfate 140 mg (45 mg 140 mg PO DAILY 07/12/20 04/23/23 iron) tablet,extended release brimonidine 0.2 %-timolol 0.5 % 1 drp EACH EYE ONCE 05/30/21 04/23/23 eye drops omega-3 fatty acids 1,000 mg 1,000 mg PO DAILY 09/26/22 04/23/23 capsule (Fish Oil Concentrate) Allergies Allergy/AdvReac Type Severity Reaction Status Date / Time prednisone Allergy Intermediate Swelling Verified 04/23/23 21:32 of face and lips, pruritis in area ampicillin Allergy Mild swelling Verified 04/23/23 21:32 and itching phenylephrine Allergy Mild burning Verified 04/23/23 21:32 and swelling , red eyes Review of Systems Review of Systems: CONSTITUTIONAL: Denies fever, chills, or sweats. ENT: Denies rhinorrhea, congestion, sore throat. CARDIOVASCULAR: Denies chest pain. RESPIRATORY: Denies cough or dyspnea. GASTROINTESTINAL: See HPI. GENITOURINARY: Denies dysuria or hematuria. SKIN: Denies rash or itching. MUSCULOSKELETAL: Denies back pain, joint pain, or myalgia. All systems reviewed & are unremarkable except as noted in HPI and below PMFSH Past Medical History Medical History Anemia Colonic polyp Hypertension Paresthesia of skin Peripheral neuropathy Postmenopausal Screening for colon cancer Type 2 diabetes mellitus Family History Family History Father Family history of Alzheimer's disease, Onset Age: 86 Family history of heart disease in male family member before age 55, Onset Age: 86 Patient's father is , Onset Age: 86 Mother Family history of diabetes mellitus in first degree relative Family history of congestive heart failure Family history of hearing loss Sibling Family history of malignant neoplasm of breast in first degree relative Social History Social History Smoking packs per day: 0.25 Smoking cigarettes per day: 5.0 Years smoked: 10 Smoking pack-years: 2.50 Smoking status: Former smoker Tobacco type: cigarettes Second hand tobacco smoke exposure: No Smoking end date: 07/01/09 Alcohol intake: current Drinks per week: 1 Alcohol use details: occasionally Substance use: never Substance use type: does not use Lack of Transportation: No Lack of Food: Never True Current Housing: I Have Housing Concerned About Future Housing: No Difficulty Paying Gas/Electric Bills: No Difficulty Paying for Meds: No Currently Unemployed: No Education: Decline to Answer Difficulty w/ Childcare or Family Care: No Gender identity (if verbalized by the patient): Female Exam Narrative: GENERAL: Elderly, obese with BMI of 33.9, non-toxic, in no acute distress. HEAD: Normocephalic, atraumatic. NECK: Supple. No adenopathy, no masses. RESPIRATORY: Airway patent, respirations nonlabored. Clear t
[2023-04-23 23:21] LABS: Influenza A QL RT-PCR Negative (Negative); Influenza B QL RT-PCR Negative (Negative); SARS-CoV-2 RNA PCR Negative (Negative)
[2023-04-23] MEDS: ONDANSETRON INJ 4 MG/2 ML VIAL IV PUSH (23:35)
[2023-04-23] MEDS: KCL 20 MEQ/SW 100 ML 100 ML 50 MEQ IVPB (23:35)
[2023-04-23] MEDS: MORPHINE SULFATE (*CRX) 4 MG/ML INJ IV PUSH (23:35)
[2023-04-23] MEDS: SODIUM CHLORIDE 0.9% IV 1,000 ML 999 ML IV CONT (23:36)
[2023-04-24] MEDS: POTASSIUM CHLORIDE 20 MEQ ER TABLET 40 MEQ PO (00:13)
[2023-04-24 00:16] VITALS: BP 139/68; PULSE 85; O2SAT 96
== END 2023-04-24 01:20 | disposition home or self-care (01) ==
PROVIDERS: Emergency Medicine; Emergency Provider Physician Assistant; PCP Family Medicine
DX: N30.01 Acute cystitis with hematuria (principal); R11.2 Nausea with vomiting, unspecified; R10.30 Lower abdominal pain, unspecified; I72.2 Aneurysm of renal artery; D64.9 Anemia, unspecified; I10 Essential (primary) hypertension; E11.9 Type 2 diabetes mellitus without complications; Z20.822 Contact with and (suspected) exposure to COVID-19
CPT/HCPCS: 36415; 74177; 80053; 81001; 82948; 83690; 85025; 87086; 87088; 87636; 96365; 96367; 96375; 99284; A9270; J0696; J2270; J2405; J3480; J7030; Q9967

== ENCOUNTER 2023-07-23 08:08 | Outpatient (CLI) | payer MEDICARE, SELFPAY ==
--- NOTE | ~2023-07-23 | CT_ITS ---
EXAMINATION: CTA abdomen pelvis DATE: 07/23/2023 08:51 INDICATION: Renal artery aneurysm TECHNIQUE: Computed tomographic angiography (CTA) of the abdomen and pelvis was performed with 100 mL Omnipaque-350 intravenous contrast. Additional 3D reconstructions utilizing rotating maximum intensi ty projection (MIP) were performed. Automated exposure control and iterative reconstruction technique were employed. The dose-length product was 947.90 mGy-cm. COMPARISON: 04/23/2023 FINDINGS: Mild dependent atelectasis in the bilateral lower lobes. Heart size is normal. No pericardial or pleu ral effusion. Small calcified gallstone in the dependent aspect of the normal-appearing gallbladder. Liver, spleen, pancreas, bilateral adrenal glands and bilateral kidneys are normal. No significant in terval change in a 2.5 cm contrast-enhanced saccular right renal artery aneurysm. Unchanged 2.4 cm ov oid macroscopic fat attenuation intraluminal lipoma at the second portion of the duodenum. Mild scatt ered colonic diverticulosis with sigmoid colon predominance and without adjacent from trace stranding to suggest diverticulitis. Normal appendix. No bowel obstruction. Bladder, uterus and bilateral adne xa are unremarkable. No significant interval change in a 17.3 x 5.8 cm macroscopic fat attenuation perera bcutaneous or mass at the superomedial right buttock/inferior right flank. This includes stable appea rakan of a 4.4 x 2.2 cm soft tissue density peripheral regions of peripheral curvilinear calcificatio n consistent with heterotopic ossification. Appearance remains most consistent with a subcutaneous li sonya with internal fat necrosis. No free intraperitoneal gas or fluid. No pathologically enlarged abd ominal or pelvic lymphadenopathy. Mild degenerative skeletal changes in the visualized spine and pelv is. IMPRESSION: 1. Unchanged 2.5 cm saccular aneurysm of the right renal artery. 2. 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 Reviewed, dictated and finalized at location A. ISH MELTER HELPER IMPRESSION: 1. Unchanged 2.5 cm saccular aneurysm of the right renal artery. 2. 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
[2023-07-23 08:41] LABS: Estimated Glomerular Filt Rate 44
== END 2023-07-23 08:09 | disposition home or self-care (01) ==
PROVIDERS: PCP Family Medicine
DX: I72.2 Aneurysm of renal artery (principal)
CPT/HCPCS: 74174; Q9967

== ENCOUNTER 2024-06-17 10:13 | Outpatient (CLI) | payer MEDICARE, SELFPAY ==
--- NOTE | ~2024-06-17 | MM_ITS ---
EXAMINATION: MM screening josé miguel BI w elke HISTORY: Screening TECHNIQUE: Craniocaudal and mediolateral oblique 3-D tomosynthesis images were obtained and synthetic 2-D images were generated. CAD analysis was submitted and interpreted. COMPARISON: Comparison to multiple prior studies sequentially, with oldest reviewed study dated 01/2018. BREAST PARENCHYMAL COMPOSITION: There are scattered areas of fibroglandular density. FINDINGS: There is no evidence of suspicious mass, calcification, or architectural distortion to sugg est malignancy in either breast. There has been no suspicious interval change. IMPRESSION: 1. No mammographic evidence of malignancy. 2. Recommend routine screening mammography in one year. BI-RADS Category 1: Negative Reviewed, dictated and finalized at location B. RELIEF OPERATOR
== END 2024-06-17 10:14 | disposition home or self-care (01) ==
LOC: ANHIMG 10:15
PROVIDERS: PCP Nurse Practitioner Family; Visit Provider Nurse Practitioner Family
DX: Z12.31 Encounter for screening mammogram for malignant neoplasm of breast (principal)
CPT/HCPCS: 77063; 77067

== ENCOUNTER 2024-08-18 06:36 | Outpatient (CLI) | payer MEDICARE, SELFPAY ==
--- NOTE | ~2024-08-18 | CT_ITS ---
CT of the Abdomen and Pelvis: Indication: Renal artery aneurysm Technique: 2.5 mm axial scans were obtained through the abdomen and pelvis following intravenous adm inistration of 100 cc of Omnipaque 350. Dose reduction technique was used on this scan by utilizing a utomated exposure control and iterative reconstruction technique. The dose-length product (DLP) was 7 31.44 mGy-cm. COMPARISON: 07/23/2023 Findings: Scans through the lung bases are unremarkable. The liver, spleen, pancreas, adrenals and kidneys are within normal limits. Small calcified gallstone present. No evidence of aortic aneurysm. 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 No lymphadenopathy. No bowel obstruction or bowel wall thickening. There is no evidence to suggest acute appendicitis. Images through the pelvis were performed. Urinary bladder unremarkable. No pelvic mass seen. No ascit es. Stable large lipomatous mass in the subcutaneous soft tissues at the low back, area of probable d ystrophic calcification within it. 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 Stable large lipomatous mass in the subcutaneous soft tissues of the low back with area of dystrophic calcification in focal soft tissue attenuation. Reviewed, dictated and finalized at [facility]. 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 Stable large lipomatous mass in the subcutaneous soft tissues of the low back w ith area of dystrophic calcification in focal soft tissue attenuation.
--- OUTSIDE RECORDS SUMMARY | 2024-08-18 06:43 | XMS_ITS | Patient Health Summary ---
Author Organization [facility] Address [address] [place] [address] Care Team Providers Care School Photograph Editor Name Role Phone Adrian Hernández MD Primary Care Provider [phone] Note from [facility],non-owned Affiliates and Associated Physician Practices is amultiple site organization consisting of ambulatory clinics and hospital sitesin [place], [place] and [place]. This disclosure is being madepursuant to the Care Everywhere program and may not contain all information available regarding this patient. Last updated 18.[facility] Allergies * Ampicillin(Urticaria) -Medium Criticality * Phenylephrine(Itching) Medications * Be aware that medications may not be up to date on this document. Alwaysverify current medications with the patient. * amLODIPine (NORVASC) 10 MG tablet Take 10 mg by mouth once daily * simvastatin (ZOCOR) 20 MG tablet Take 20 mg by mouth at bedtime * valsartan-hydroCHLOROthiazide (DIOVAN HCT) 320-12.5 MG tablet Take 1 Tab by mouth once daily * metFORMIN CR 24hr modified (GLUMETZA) 1000 MG (MOD) tablet Take 1,000 mg by mouth daily with dinner * glyBURIDE (DIABETA; MICRONASE) 1.25 MG tablet Take 1.25 mg by mouth daily with breakfast * fexofenadine (HM FEXOFENADINE HCL) 180 MG tablet Take 180 mg by mouth once daily * FLUTICASONE FUROATE IN * omeprazole (PRILOSEC) 20 MG capsule Take 20 mg by mouth daily before breakfast * valsartan (Diovan) 160 MG tablet(Started 03/02/2023) Take 1 (one) tablet by mouth once daily * pregabalin (Lyrica) 50 MG capsule(Started 02/25/2023) Take 1 (one) capsule by mouth 2 times daily Social History Tobacco Use Types Packs/Day Years Used Date Smoking Tobacco: Never Smokeless Tobacco: Never Tobacco Cessation:Counseling Given: Not Answered Alcohol Use Standard Drinks/Week Comments No 0 (1 standard drink = 0.6 oz pur e alcohol) Sex and Gender Information Value Date Recorded Sex Assigned at Not on file Gender Identity Female 07/10/2023 8:47 AM INKING MACHINE TENDER Sexual Orientation Not on file Last Filed Vital Signs Vital Sign Reading Time Taken Comments Blood Pressure 119/75 08/07/2023 11:26 AM INKING MACHINE TENDER Pulse 71 08/07/2023 11:26 AM INKING MACHINE TENDER Temperature 36.4 C (97.6 F) 08/07/2023 11:26 AM INKING MACHINE TENDER Respiratory Rate 19 08/07/2023 11:26 AM INKING MACHINE TENDER Oxygen Saturation 98% 08/07/2023 11:26 AM INKING MACHINE TENDER Inhaled Oxygen Concentration - - Weight 81.3 kg (179 lb 4.8 oz) 08/07/2023 11:26 AM INKING MACHINE TENDER Height 157.5 cm (5' 2 ) 08/07/2023 11:26 AM INKING MACHINE TENDER Body Mass Index 32.79 08/07/2023 11:26 AM INKING MACHINE TENDER Care Teams School Photograph Editor Relationship Specialty Start Date End Date Adrian Hernández MD [address] [place] [address] PCP - General Family Medicine 06/10/24
--- OUTSIDE RECORDS SUMMARY | 2024-08-18 06:43 | XMS_ITS | Clinical Summary ---
Author Organization [facility] Address [address] [place] [address] Care Team Providers Care Interlocking Installer Name Role Phone Adrian Hernández MD Primary Care Provider [phone] Source Comments [facility],non-[facility] Affiliates and Associated Physician Practices is amultiple site organization consisting of ambulatory clinics and hospital sitesin [place], [place], [place] and [place]. This disclosure is being madepursuant to the Care Everywhere program and may not contain all information available regarding this patient. Last updated 18.[facility] Allergies Active Allergy Reactions Criticality Noted Date Comments Ampicillin Urticaria Medium 09/01/2016 Phenylephrine Itching 09/01/2016 When had eyes dilated Medications * Be aware that medications may not be up to date on this document. Alwaysverify current medications with the patient. Medication Sig Dispensed Refills Start Date End Date Status amLODIPine (NORVASC) 10 MG tablet Take 10 mg by mouth once daily Active simvastatin (ZOCOR) 20 MG tablet Take 20 mg by mouth at bedtime Active valsartan-hydroCHLOROt hiazide (DIOVAN HCT) 320-12.5 MG tablet Take 1 Tab by mouth once daily Active metFORMIN CR 24hr modified (GLUMETZA) 1000 MG (MOD) tablet Take 1,000 mg by mouth daily with dinner Active glyBURIDE (DIABETA; MICRONASE) 1.25 MG tablet Take 1.25 mg by mouth daily with breakfast Active fexofenadine (HM FEXOFENADINE HCL) 180 MG tablet Take 180 mg by mouth once daily Active FLUTICASONE FUROATE IN Ac tive omeprazole (PRILOSEC) 20 MG capsule Take 20 mg by mouth daily before breakfast Active valsartan (Diovan) 160 MG tablet Take 1 (one) tablet by mouth once daily 03/02/2023 Active pregabalin (Lyrica) 50 MG capsule Take 1 (one) capsule by mouth 2 times daily 02/25/2023 Active Encounters Date Type Department Care Team Description 06/10/2024 Travel from Last 3 Months Family History Medical History Relation Name Comments Alzheimer's Disease Father Heart Disease Father Diabetes Mother Hearing Loss Mother Heart Disease Mother Hyperlipidemia Mother Hypertension Mother Relation Name Status Comments Father Mother Social History Tobacco Use Types Packs/Day Years Used Date Smoking Tobacco: Never Smokeless Tobacco: Never Tobacco Cessation:Counseling Given: Not Answered Alcohol Use Standard Drinks/Week Comments No 0 (1 standard drink = 0.6 oz pur e alcohol) Sex and Gender Information Value Date Recorded Sex Assigned at Not on file Gender Identity Female 07/10/2023 8:47 AM FIELD SERVICE TECHNICIAN Sexual Orientation Not on file Last Filed Vital Signs Vital Sign Reading Time Taken Comments Blood Pressure 119/75 08/07/2023 11:26 AM FIELD SERVICE TECHNICIAN Pulse 71 08/07/2023 11:26 AM FIELD SERVICE TECHNICIAN Temperature 36.4 C (97.6 F) 08/07/2023 11:26 AM FIELD SERVICE TECHNICIAN Respiratory Rate 19 08/07/2023 11:26 AM FIELD SERVICE TECHNICIAN Oxygen Saturation 98% 08/07/2023 11:26 AM FIELD SERVICE TECHNICIAN Inhaled Oxygen Concentration - - Weight 81.3 kg (179 lb 4.8 oz) 08/07/2023 11:26 AM FIELD SERVICE TECHNICIAN Height 157.5 cm (5' 2 ) 08/07/2023 11:26 AM FIELD SERVICE TECHNICIAN Body Mass Index 32.79 08/07/2023 11:26 AM FIELD SERVICE TECHNICIAN Plan of Treatment Upcoming Encounters Date Type Department Care Team (Late st Contact Info) Description 08/20/2024 11:30 AM FIELD SERVICE TECHNICIAN Office Visit [facility] - Vascular Surgery [address] [place] [phone] Oh Blair MD [address] [phone] Health Maintenance Due Date Last Done Comments BONE DENSITY TESTING 1945 HEPATITIS C SCREENING 06/02/1964 DTAP/TDAP/TD VACCINES (1 - Tdap) 1965 PNEUMOCOCCAL VACCINE 50+ (1 of 1 - PCV) 1996 ZOSTER VACCINE (1 of 2) 1996 Respiratory Syncytial Virus (RSV) Vaccine Pt: or over 60 yrs (1 - 1-dose 75+ series) 2021 COVID-19 VACCINE (1 - 2023-2 5 season) 2024 INFLUENZA VACCINE (#1) 2024 DEPRESSION SCREENING 07/01/2024 MEDICARE AWV CALENDAR YEAR 2024 HEPATITIS B VACCINE Aged Out No longe r eligible based on patient's age to complete this topic HIB VACCINE Aged Out No longer eligi ble based on patient's age to complete this topic HPV VACCINE Aged Out No longer eligi ble based on patient's age to complete this topic MENINGOCOCCAL (Group B) VACCINE Aged Out No longer eligible based on patient's age to complete this topic MENINGOCOCCAL VACCINE Aged Out No fermín sixto eligible based on patient's age to complete this topic Care Teams Interlocking Installer Relationship Specialty Start Date End Date Adrian Hernández MD [address] [place] [address] PCP - General Family Medicine 06/10/24
--- OUTSIDE RECORDS SUMMARY | 2024-08-18 06:43 | XMS_ITS | Referral Summary ---
Author Organization [facility] Address [address] [place] [address] Care Team Providers Care Concrete Float Maker Name Role Phone Adrian Hernández MD Primary Care Provider [phone] Source Comments [facility],non-[facility] Affiliates and Associated Physician Practices is amultiple site organization consisting of ambulatory clinics and hospital sitesin [place], [place], [place] and [place]. This disclosure is being madepursuant to the Care Everywhere program and may not contain all information available regarding this patient. Last updated 18.[facility] Encounters Date Type Department Care Team Description 06/10/2024 Travel from Last 3 Months Allergies Active Allergy Reactions Criticality Noted Date [...] by mouth 2 times daily 02/25/2023 Active Social History Tobacco Use Types Packs/Day Years Used Date Smoking Tobacco: Never Smokeless Tobacco: Never Tobacco Cessation:Counseling Given: Not Answered Alcohol Use Standard Drinks/Week Comments No 0 (1 standard drink = 0.6 oz pur e alcohol) Sex and Gender Information Value Date Recorded Sex Assigned at Not on file Gender Identity Female 07/10/2023 8:47 AM COUNTER MAKER Sexual Orientation Not on file Last Filed Vital Signs Vital Sign Reading Time Taken Comments Blood Pressure 119/75 08/07/2023 11:26 AM COUNTER MAKER Pulse 71 08/07/2023 11:26 AM COUNTER MAKER Temperature 36.4 C (97.6 F) 08/07/2023 11:26 AM COUNTER MAKER Respiratory Rate 19 08/07/2023 11:26 AM COUNTER MAKER Oxygen Saturation 98% 08/07/2023 11:26 AM COUNTER MAKER Inhaled Oxygen Concentration - - Weight 81.3 kg (179 lb 4.8 oz) 08/07/2023 11:26 AM COUNTER MAKER Height 157.5 cm (5' 2 ) 08/07/2023 11:26 AM COUNTER MAKER Body Mass Index 32.79 08/07/2023 11:26 AM COUNTER MAKER Plan of Treatment Upcoming Encounters Date Type Department Care Team (Late st Contact Info) Description 08/20/2024 11:30 AM COUNTER MAKER Office Visit [facility] - Vascular Surgery [address] [place] [phone] Oh Blair MD [address] [facility] [address] [place] [address] Care Teams Concrete Float Maker Relationship Specialty Start Date End Date Adrian Hernández MD [address] [place] [address] PCP - General Family Medicine 06/10/24
--- OUTSIDE RECORDS SUMMARY | 2024-08-18 06:43 | XMS_ITS | Clinical Summary ---
Author Organization [facility] Building [facility] Address [address] [place] [address] Care Team Providers Care Tanning Wheel Operator Name Role Phone Rick Santiago DO Primary Care Provider [phone] Allergies Active Allergy Reactions Criticality Noted Date Comments Ampicillin Unknown 04/17/2021 Medications No known medications Active Problems No known active problems Social History Tobacco Use Types Packs/Day Years Used Date Smoking Tobacco: Never Assessed Personal Safety Answer Date Recorded Getting School Help Needed Not on file 08/31 Comments Unknown Sex and Gender Information Value Date Recorded Sex Assigned at Not on file Legal Sex Female 2:21 PM CANARY RAISER Gender Identity Not on file Sexual Orientation Not on file Last Filed Vital Signs Vital Sign Reading Time Taken Comments Blood Pressure 136/77 04/17/2021 8:44 AM CDT Pulse 78 04/17/2021 8:44 AM CDT Temperature - - Respiratory Rate - - Oxygen Saturation - - Inhaled Oxygen Concentration - - Weight 85.5 kg (188 lb 6.4 oz) 04/17/2021 8:44 A M CDT Height 157.5 cm (5' 2 ) 04/17/2021 8:44 AM CDT Body Mass Index 34.46 04/17/2021 8:44 AM CDT Plan of Treatment Not on file Insurance Member Subscriber Plan / Payer (Ef fective 2020-Present) Name:Makayla Amy Relation to Subscriber:Self Name:FrancisRejiAmy monique Payer ID:[id number] (NAIC) Type:[facility] Address: [place] [phone] R HMO REF R HMO REF Member Subscriber Plan / Payer (Ef fective 2020-Present) Name:Amy Benavides Relation to Subscriber:Self Name:Makayla Amy Payer ID:[id number] (NAIC) Type:[facility] MEDIC[facility] Address: [place] [phone] Care Teams Tanning Wheel Operator Relationship Specialty Start Date End Date Rick Santiago DO PCP - General Internal Medicine 08/02/20
--- OUTSIDE RECORDS SUMMARY | 2024-08-18 06:43 | XMS_ITS | Referral Summary ---
Author Organization [facility] Medical Office Building B Address [address] [place] [address] Care Team Providers Care Marketing Strategy Manager Name Role Phone Rick Santiago Primary Care Provider [phone] Allergies Active Allergy Reactions Criticality Noted Date [...] on file Legal Sex Female 2:21 PM UNDERTAKER HELPER Gender Identity Not on file Sexual Orientation [...] to Subscriber:Self Name:FrancisRejiAmy monique Payer ID:[id number] (NAIC) Type:[facility] MED[facility] Address: [place] [phone] R HMO REF R HMO REF Member Subscriber Plan / Payer (Ef fective 2020-Present) Name:Amy Benavides Relation to Subscriber:Self Name:Makayla Amy Payer ID:[id number] (NAIC) Type:[facility] MEDIC[facility] Address: [place] [phone] Care Teams Marketing Strategy Manager Relationship Specialty Start Date End Date Rick Santiago DO PCP - General Internal Medicine 08/02/20
--- OUTSIDE RECORDS SUMMARY | 2024-08-18 06:43 | XMS_ITS | Clinical Summary ---
Author Organization [facility] Care Team Providers Care Marketing Programs Manager Name Role Phone Unavailable Primary Care Provider Unavailabl e Social History Tobacco Use Types Packs/Day Years Used Date Smoking Tobacco: Never Assessed Comments Unknown Sex and Gender Information Value Date Recorded Sex Assigned at Not on file Legal Sex Female 8:19 AM CLIENT TECHNICAL SUPPORT ASSOCIATE Gender Identity Not on file Sexual Orientation Not on file Plan of Treatment Health Maintenance Due Date Last Done Comments DEXA Bone Density 1945 Hepatitis C Virus (HCV) Screening 1945 TdaP Immunization 1945 Pneumococcal Immunization (5 0+ years) (1 of 1 - PCV) 1996 Zoster Immunization (1 of 2) 1996 Respiratory Syncytial Virus (RSV) Immunization (Adult) (1 - 1-dose 75+ series) 2021 Influenza Immunization (#1) 2024 SARS-COV-2 Immunization (2 - season) 2024 05/04/2021 Hepatitis B Immunization Aged Out No longer eligible based on patient's age to complete this topic Meningococcal Immunization (ACWY) Aged Out No longer eligible based on patient's age to complete this topic Rotavirus Immunization Aged Out No lo nger eligible based on patient's age to complete this topic
--- OUTSIDE RECORDS SUMMARY | 2024-08-18 06:43 | XMS_ITS | Clinical Summary ---
Author Organization [facility] Address [address] [place] [address] Care Team Providers Care Hospital Food Service Worker Name Role Phone Darwin Britt MD Primary Care Provider [phone] Social History Tobacco Use Types Packs/Day Years Used Date Smoking Tobacco: Never Assessed Comments Unknown Sex and Gender Information Value Date Recorded Sex Assigned at Not on file Legal Sex Female 9:52 PM CDT Gender Identity Not on file Sexual Orientation Not on file Last Filed Vital Signs Vital Sign Reading Time Taken Comments Blood Pressure 134/82 06/15/2014 3:40 PM INSURANCE PLAN SPECIALIST Pulse - - Temperature - - Respiratory Rate - - Oxygen Saturation - - Inhaled Oxygen Concentration - - Weight 93.4 kg (206 lb) 06/15/2014 3:40 PM INSURANCE PLAN SPECIALIST Height 153.7 cm (5' 0.5 ) 06/15/2014 3:40 PM INSURANCE PLAN SPECIALIST Body Mass Index 39.57 06/15/2014 3:40 PM INSURANCE PLAN SPECIALIST Plan of Treatment Health Maintenance Due Date Last Done Comments Hepatitis C 1963 Zoster Vaccines (1 of 2) 1996 DTaP, Tdap and Td Vaccines ( 1 - Tdap) 07/25/2004 07/24/2004 Dexa Scan (General) 2011 Pneumococcal Vaccine: 65+ Years (2 of 2 - PCV) 2011 07/24/2004 RSV Immunization or 60+ Years (1 - 1-dose 75+ series) 2021 COVID-19 Vaccine ( - 2023-2 5 season) 2024 Influenza Adult (#1) 2024 03/22/2014, 03/25/2013 Colorectal Cancer Screening Colonoscopy (10 Years) Discontinued 07/01/2013 Meningococcal B Vaccine Aged Out No l onger eligible based on patient's age to complete this topic Meningococcal Vaccine Aged Out No fermín sixto eligible based on patient's age to complete this topic RSV Immunizations Under 20 Months Aged Out No longer eligible based on patient's age to complete this topic Procedures Procedure Name Priority Date/Time Associated Diagnosis Comments COLONOSCOPY Routine 07/01/2013 12:00 AM INSURANCE PLAN SPECIALIST from Last 3 Months or Most Recently Relevant to Health Maintenance Results * Colonoscopy (07/01/2013 12:00 AM INSURANCE PLAN SPECIALIST) 07/01/2013 07/01/2013 Narrative TOUCHWORKS TO EPIC CONVERSION - 07/01/2013 12:00 AM INSURANCE PLAN SPECIALIST Documented hx of procedure Procedure Note , Generic ConversionMD - 09/18/2018 Documented hx of procedure us Generic Conversion Md CATES GI PROCEDURE ORDERABLES Final Result TOUCHWORKS TO EPIC CONVERSION from Last 3 Months or Most Recently Relevant to Health Maintenance Care Teams Hospital Food Service Worker Relationship Specialty Start Date End Date Darwin Britt MD PCP - General 10/31/16
--- OUTSIDE RECORDS SUMMARY | 2024-08-18 06:43 | XMS_ITS | Encounter Summary ---
Author Organization [facility] Address [address] [place] [address] Care Team Providers Care Janitorial Cleaner Name Role Phone Darwin Britt MD Primary Care Provider [phone] Encounter Details Date Type Department Care Team (Latest Contact Info) Description 05/06/2018 Abstract [facility] , Osbaldo Tai MD Social History Tobacco Use Types Packs/Day Years Used Date Smoking Tobacco: Never Assessed Comments Unknown Sex and Gender Information Value Date Recorded Sex Assigned at Not on file Legal Sex Female 9:52 PM CDT Gender Identity Not on file Sexual Orientation Not on file documented as of this encounter Plan of Treatment Not on file documented as of this encounter Visit Diagnoses Not on filedocumented in this encounter Care Teams Janitorial Cleaner Relationship Specialty Start Date End Date Darwin Britt MD PCP - General 10/31/16 documented as of this encounter
[2024-08-18 07:05] LABS: Estimated Glomerular Filt Rate 38
== END 2024-08-18 06:37 | disposition home or self-care (01) ==
PROVIDERS: PCP Nurse Practitioner Family; Visit Provider Nurse Practitioner Family
DX: I72.2 Aneurysm of renal artery (principal)
CPT/HCPCS: 74174; Q9967

== ENCOUNTER 2025-05-04 01:17 | Day surgery (SDC) | payer MEDICARE, SELFPAY ==
[2025-04-22 08:26] VITALS: BMI 31.2
--- OUTSIDE RECORDS SUMMARY | 2025-05-04 01:21 | XMS_ITS | Clinical Summary ---
Author Organization [facility] Address [address] [place] [address] Care Team Providers Care Gifted Teacher Name Role Phone Adrian Hernández MD Primary Care Provider [phone] Source Comments [facility],non-owned Affiliates and Associated Physician Practices is amultiple site organization consisting of ambulatory clinics and hospital sitesin [place], [place], [place] and [place]. This disclosure is being madepursuant to the Care Everywhere program and may not contain all information available regarding this patient. Last updated 18.[facility] Allergies Active Allergy Reactions Criticality Noted Date Comments Ampicillin Urticaria Medium 09/01/2016 Phenylephrine Itching 09/01/2016 When had eyes dilated Medications * Be aware that medications may not be up to date on this document. Alwaysverify current medications with the patient. amLODIPine (NORVASC) 10 MG tablet Take 1 (one) tablet by mouth once daily Active simvastatin (ZOCOR) 20 MG tablet Take 1 (one) tablet by mouth at bedtime Active valsartan-hydroCH LOROthiazide (DIOVAN HCT) 320-12.5 MG tablet Take 1 (one) tablet by mouth once daily Active metFORMIN CR 24hr modified (GLUMETZA) 1000 MG (MOD) tablet Take 1 (one) tablet by mouth daily with dinner Active glyBURIDE (DIABETA; MICRONASE) 1.25 MG tablet Take 1 (one) tablet by mouth daily with breakfast Active fexofenadine (HM FEXOFENADINE HCL) 180 MG tablet Take 1 (one) tablet by mouth once daily Active FLUTICASONE FUROATE IN Active omeprazole (PRILOSEC) 20 MG capsule Take 1 (one) capsule by mouth daily before breakfast Active valsartan (Diovan) 160 MG tablet Take 1 (one) tablet by mouth once daily 3 Active pregabalin (Lyrica) 50 MG capsule Take 1 (one) capsule by mouth 2 times daily 3 Active Encounters Date Type Department Care Team Description 03/03/2025 Travel from Last 3 Months Family History [...] drink = 0.6 oz pur e alcohol) Comments No Sex and Gender Information Value Date Recorded Sex Assigned at Not on file Legal Sex Female 9:33 AM SIZE TESTER Gender Identity Female 07/10/2023 8:47 AM SIZE TESTER Sexual Orientation Not on file Last Filed Vital Signs Vital Sign Reading Time Taken Comments Blood Pressure 122/80 08/20/2024 11:32 AM SIZE TESTER Pulse 86 08/20/2024 11:32 AM SIZE TESTER Temperature 36.6 C (97.8 F) 08/20/2024 11:32 AM SIZE TESTER Respiratory Rate 19 08/07/2023 11:26 AM SIZE TESTER Oxygen Saturation 97% 08/20/2024 11:32 AM SIZE TESTER Inhaled Oxygen Concentration - - Weight 79.8 kg (176 lb) 08/20/2024 11:32 AM SIZE TESTER Height 157.5 cm (5' 2) 08/20/2024 11:32 AM SIZE TESTER Body Mass Index 32.19 08/20/2024 11:32 AM SIZE TESTER Plan of Treatment Upcoming Encounters Date Type Department Care Team (Late st Contact Info) Description 08/26/2025 11:00 AM SIZE TESTER Office Visit [facility] - Vascular Surgery [address] [place] [id number] Oh Blair MD [address] [id number] Health Maintenance Due Date Last Done Comments BONE DENSITY TESTING 1945 HEPATITIS C SCREENING 06/02/1964 DTAP/TDAP/TD VACCINES (1 - Tdap) 1965 PNEUMOCOCCAL VACCINE 50+ (1 of 1 - PCV) 1996 ZOSTER VACCINE (1 of 2) 1996 Respiratory Syncytial Virus (RSV) Vaccine Pt: or over 60 yrs (1 - 1-dose 75+ series) 2021 DEPRESSION SCREENING 07/01/2024 MEDICARE AWV CALENDAR YEAR 2024 COVID-19 VACCINE (1 - 2023-2 5 season) 2025 INFLUENZA VACCINE (#1) 2025 HEPATITIS B VACCINE Aged Out No longe r eligible based on patient's age to complete this topic HIB VACCINE Aged Out No longer eligi ble based on patient's age to complete this topic HPV VACCINE Aged Out No longer eligi ble based on patient's age to complete this topic MENINGOCOCCAL (Group B) VACC INE SHARED DECISION-MAKING Aged Out No longer eligibl e based on patient's age to complete this topic MENINGOCOCCAL GROUPS A/C/Y/W VACCINE Aged Out No longer eligible b ased on patient's age to complete this topic Insurance [employer] MANAGED MEDICARE ADV [facility] MANAGED MEDICARE ADV Care Teams Gifted Teacher Relationship Specialty Start Date End Date Adrian Hernández MD [address] [place] [address] PCP - General Family Medicine 06/10/24
--- OUTSIDE RECORDS SUMMARY | 2025-05-04 01:21 | XMS_ITS | Clinical Summary ---
Author Organization [facility] Address [address] [place] [address] Care Team Providers Care Anti Air Warfare Operations Officer Name Role Phone Darwin Britt MD Primary Care Provider [phone] Social History Tobacco Use Types Packs/Day Years Used Date Smoking Tobacco: Never Assessed Comments Unknown Sex and Gender Information Value Date Recorded Sex Assigned at Not on file Legal Sex Female 9:52 PM CDT Gender Identity Not on file Sexual Orientation Not on file Last Filed Vital Signs Vital Sign Reading Time Taken Comments Blood Pressure 134/82 06/15/2014 3:40 PM CASEY SAW OPERATOR Pulse - - Temperature - - Respiratory Rate - - Oxygen Saturation - - Inhaled Oxygen Concentration - - Weight 93.4 kg (206 lb) 06/15/2014 3:40 PM CASEY SAW OPERATOR Height 153.7 cm (5' 0.5) 06/15/2014 3:40 PM CASEY SAW OPERATOR Body Mass Index 39.57 06/15/2014 3:40 PM CASEY SAW OPERATOR Plan of Treatment Health Maintenance Due Date Last Done Comments Hepatitis C 1963 Zoster Vaccines (1 of 2) 1996 DTaP, Tdap and Td Vaccines ( 1 - Tdap) 07/25/2004 07/24/2004 Pneumococcal Vaccine: 50+ Years (2 of 2 - PCV) 07/24/2005 07/24/2004 Dexa Scan (General) 2011 RSV Immunization or 60+ Years (1 - 1-dose 75+ series) 2021 COVID-19 Vaccine ( - 2024-2 6 season) 2025 Influenza Adult (#1) 2025 03/22/2014, 03/25/2013 Colorectal Cancer Screening Colonoscopy (10 Years) Discontinued 07/01/2013 Hepatitis A Vaccines Aged Out No long er eligible based on patient's age to complete this topic Meningococcal B Vaccine Aged Out No l [...] Diagnosis Comments COLONOSCOPY Routine 07/01/2013 12:00 AM CASEY SAW OPERATOR from Last 3 Months or Most Recently Relevant to Health Maintenance Results * Colonoscopy (07/01/2013 12:00 AM CASEY SAW OPERATOR) 07/01/2013 07/01/2013 Narrative TOUCHWORKS TO EPIC CONVERSION - 07/01/2013 12:00 AM CASEY SAW OPERATOR Documented hx of procedure Procedure Note Osbaldo Cates MD - 09/18/2018 Documented hx of procedure us Generic Conversion Md CATES GI PROCEDURE ORDERABLES Final Result TOUCHWORKS TO EPIC CONVERSION from Last 3 Months or Most Recently Relevant to Health Maintenance Care Teams Anti Air Warfare Operations Officer Relationship Specialty Start Date End Date Darwin Britt MD PCP - General 10/31/16
--- OUTSIDE RECORDS SUMMARY | 2025-05-04 01:21 | XMS_ITS | Clinical Summary ---
Author Organization [facility] Care Team Providers Care Early Childhood Education Coordinator Name Role Phone Unavailable Primary Care Provider Unavailabl e Social History Tobacco Use Types Packs/Day Years Used Date Smoking Tobacco: Never Assessed Comments Unknown Sex and Gender Information Value Date Recorded Sex Assigned at Not on file Legal Sex Female 8:19 AM RACING SECRETARY AND HANDICAPPER Gender Identity Not on file Sexual Orientation Not on file Plan of Treatment Health Maintenance Due Date Last Done Comments Hepatitis C Virus (HCV) Screening 1945 TdaP Immunization 1945 Pneumococcal Immunization (5 0+ years) (1 of 1 - PCV) 1996 Zoster Immunization (1 of 2) 1996 Respiratory Syncytial Virus (RSV) Immunization (Adult) (1 - 1-dose 75+ series) 2021 Influenza Immunization (#1) 2025 SARS-COV-2 Immunization (2 - season) 2025 05/04/2021 Hepatitis B Immunization Aged Out No longer eligible based on patient's age to complete this topic Human Papillomavirus (HPV) Immunization Aged Out No longer eligible b ased on patient's age to complete this topic Meningococcal Immunization (ACWY) Aged Out No longer eligible based on patient's age to complete this topic Rotavirus Immunization Aged Out No lo nger eligible based on patient's age to complete this topic
--- OUTSIDE RECORDS SUMMARY | 2025-05-04 01:21 | XMS_ITS | Encounter Summary ---
Author Organization [facility] Address [address] [place] [address] Care Team Providers Care Material Handler 1St Shift Name Role Phone Darwin Britt MD Primary Care Provider [phone] Encounter Details Date Type Department Care Team (Latest Contact Info) Description 05/06/2018 Abstract [facility] , Osbaldo Tai MD Social [...] on filedocumented in this encounter Care Teams Material Handler 1St Shift Relationship Specialty Start Date End Date Darwin Britt MD PCP - General 10/31/16 documented as of this encounter
--- OUTSIDE RECORDS SUMMARY | 2025-05-04 01:21 | XMS_ITS | Clinical Summary ---
Author Organization [facility] Medical Office Building B Address [address] [place] [address] Care Team Providers Care Career Center Director Name Role Phone Rick Santiago Primary Care Provider [phone] Allergies Active Allergy Reactions Criticality Noted Date [...] on file Legal Sex Female 2:21 PM DISTRICT FIRE MANAGEMENT OFFICER Gender Identity Not on file Sexual Orientation [...] A M CDT Height 157.5 cm (5' 2) 04/17/2021 8:44 AM CDT Body Mass Index 34.46 04/17/2021 8:44 AM CDT Plan of Treatment Not on file Insurance Member Subscriber Plan / Payer (Ef fective 2020-Present) Name:Makayla Amy Relation to Subscriber:Self Name:Amy Benavides Payer ID:[id number] (NAIC) Type:[facility] Address: [place] [phone] R HMO REF R HMO REF Member Subscriber Plan / Payer (Ef fective 2020-Present) Name:Amy Benavides Relation to Subscriber:Self Name:Makayla Amy Payer ID:[id number] (NAIC) Type:[facility] MED[facility] Address: [place] [phone] Care Teams Career Center Director Relationship Specialty Start Date End Date Rick Santiago DO PCP - General Internal Medicine 08/02/20
[2025-05-04 12:17] VITALS: BP 103/63; PULSE 85; RESP 18; TEMP 36.2; O2SAT 99
[2025-05-04] MEDS: LACTATED RINGERS 1,000 ML 150 ML IV CONT (12:33)
[2025-05-04] MEDS: SIMETHICONE ORAL SUSPENSION 20 MG/0.3 ML 30 ML BOTTLE 1.8 ML PO (12:34)
--- NOTE | 2025-05-04 12:58 | WPDANESEPPF ---
Anes - Initial Pre Proc Eval Procedure: Operation Date: 05/04/25 13:30 Proposed Procedures p Esophagogastroduodenoscopy EGD - Tc Santigao MD Date/Time: 05/04/25 12:58 Surgeon: Tc Santiago MD Pre Op Diagnosis: Dysphagia, unspecified Patient Data Age: 79 Gender: F Height: 1.57 m Weight: 79.1 kg Last Vital Signs Temp 97.2 F L 05/04/25 12:17 Pulse 85 05/04/25 12:17 Resp 18 05/04/25 12:17 BP 103/63 05/04/25 12:17 Pulse Ox 99 05/04/25 12:17 O2 Del Method Room Air 05/04/25 12:17 Allergies Allergy/AdvReac Type Severity Reaction Status Date / Time ampicillin Allergy Mild swelling Verified 05/04/25 12:14 and itching phenylephrine Allergy Mild burning Verified 05/04/25 12:14 and swelling , red eyes Home Medications ?Medication ?Instructions ?Recorded ?Confirmed ?Type aspirin 81 mg chewable tablet 81 mg PO DAILY 11/14/19 04/22/25 History cholecalciferol (vitamin D3) 50 50 mcg PO DAILY #90 tabs 05/29/20 04/22/25 Rx mcg (2,000 unit) tablet ferrous sulfate 140 mg (45 mg 140 mg PO DAILY 07/12/20 04/22/25 History iron) tablet,extended release brimonidine 0.2 %-timolol 0.5 % 1 drp EACH EYE ONCE 05/30/21 04/22/25 History eye drops omega-3 fatty acids 1,000 mg 1,000 mg PO DAILY 09/26/22 04/22/25 History capsule (Fish Oil Concentrate) amlodipine 10 mg tablet See Rx Instructions .Route 11/09/24 04/22/25 Rx .COMPLEX #90 tabs pregabalin 50 mg capsule (Lyrica) 50 mg PO BID #180 caps 11/26/24 04/22/25 Rx semaglutide 1 mg/dose (4 mg/3 mL) 1 mg (0.75 mL) subcut WEEKLY #9 mL 11/26/24 04/22/25 Rx subcutaneous pen injector simvastatin 20 mg tablet See Rx Instructions .Route 11/26/24 04/22/25 Rx .COMPLEX #90 tabs valsartan 160 mg tablet See Rx Instructions .Route 11/26/24 04/22/25 Rx .COMPLEX #90 tabs dapagliflozin propanediol 10 mg 10 mg PO DAILY #90 tabs 12/11/24 04/22/25 Rx tablet (Farxiga) omeprazole 20 mg capsule,delayed 20 mg PO DAILY 8 weeks #56 caps 04/15/25 04/22/25 Rx release Laboratory Tests 05/04/25 12:30 POC Capillary Glucose 119 H mg/dl (65-105) Patient hx anesthesia problems: none Family hx anesthesia problems: none Results Review: All pre-operative results and documents have been reviewed as part of the pre-operative evaluation. [facility] Past Medical History Medical History Paresthesia of skin Screening for colon cancer Postmenopausal Anemia Peripheral neuropathy Hypertension Colonic polyp Type 2 diabetes mellitus Family History Family History Father Family history of Alzheimer's disease, Onset Age: 86 Family history of heart disease in male family member before age 55, Onset Age: 86 Patient's father is , Onset Age: 86 Mother Family history of diabetes mellitus in first degree relative Family history of congestive heart failure Family history of hearing loss Sibling Family history of malignant neoplasm of breast in first degree relative Social History Social History Smoking packs per day: 0.25 Smoking cigarettes per day: 5.0 Years smoked: 20 Smoking pack-years: 5.00 Smoking status: Former smoker Tobacco type: cigarettes Second hand tobacco smoke exposure: No Smoking end date: 07/01/09 Alcohol intake: current Drinks per week: 2 Alcohol use details: occasionally Substance use: never Substance use type: does not use Do You Feel Safe in your Home?: Yes Lack of Transportation: No Lack of Food: Never True Current Housing: I Have Housing Concerned About Future Housing: No Difficulty Paying Gas/Electric Bills: No Difficulty Paying for Meds: No Currently Unemployed: No Education: Decline to Answer Difficulty w/ Childcare or Family Care: No Living arrangements: with family Additional living arrangements comments: with so Occupation/Education: retired Gender identity (if verbalized by the patient): Female Sexual Orientation (if Verbalized by the Patient): Straight or Heterosexual Spiritual care concerns: No Agree to blood products: Yes Anes - Eval Final PreProcedure Day of Procedure 05/04/25 12:58 Patient weight: obese Lungs: normal air movement Airway: Mallampati scale class II Neurological: alert and oriented Last oral intake: >/= 8 hours ASA classification: III Emergent: no Anesthetic plan: proceed Anesthesia type and monitoring: general GIVS and standard monitoring Results Review: All pre-operative results and documents have been reviewed as part of the pre-operative evaluation. HTN, hyperlipidemia, CKD 3, DM fsbs 119, ex smoker quit 2004, now w dysphagia. Pt active w water aerobics 5 x weekly, no cp or sob. Informed Consent: The patient's anesthetic plan and its attendant risks and benefits were discussed with the patient/family/POA. Questions were solicited and answers provided to the satisfaction of the patient/family/POA.
--- NOTE | 2025-05-04 13:26 | PM.IMHP ---
H&P: HPI History of Present Illness Date/Time: 05/04/25 13:26 Chief Complaint: Dysphagia Narrative: The patient has been experiencing intermittent dysphagia for the past month approximately. No associated weight loss, nausea, vomiting or regurgitation reported. She is referred for EGD. Review of Systems Review of Systems: All systems reviewed & are unremarkable except as noted in HPI and below PMFSH Past Medical History Medical History Paresthesia of skin Screening for colon cancer Postmenopausal Anemia Peripheral neuropathy Hypertension Colonic polyp Type 2 diabetes mellitus Family History Family History Father Family history of Alzheimer's disease, Onset Age: 86 Family history of heart disease in male family member before age 55, Onset Age: 86 Patient's father is , Onset Age: 86 Mother Family history of diabetes mellitus in first degree relative Family history of congestive heart failure Family history of hearing loss Sibling Family history of malignant neoplasm of breast in first degree relative Social History Social History Smoking packs per day: 0.25 Smoking cigarettes per day: 5.0 Years smoked: 20 Smoking pack-years: 5.00 Smoking status: Former smoker Tobacco type: cigarettes Second hand tobacco smoke exposure: No Smoking end date: 07/01/09 Alcohol intake: current Drinks per week: 2 Alcohol use details: occasionally Substance use: never Substance use type: does not use Do You Feel Safe in your Home?: Yes Lack of Transportation: No Lack of Food: Never True Current Housing: I Have Housing Concerned About Future Housing: No Difficulty Paying Gas/Electric Bills: No Difficulty Paying for Meds: No Currently Unemployed: No Education: Decline to Answer Difficulty w/ Childcare or Family Care: No Living arrangements: with family Additional living arrangements comments: with so Occupation/Education: retired Gender identity (if verbalized by the patient): Female Sexual Orientation (if Verbalized by the Patient): Straight or Heterosexual Spiritual care concerns: No Agree to blood products: Yes Meds Home Medications and Allergies Home Medications ?Medication ?Instructions ?Recorded ?Confirmed ?Type aspirin 81 mg chewable tablet 81 mg PO DAILY 11/14/19 04/22/25 History cholecalciferol (vitamin D3) 50 50 mcg PO DAILY #90 tabs 05/29/20 04/22/25 Rx mcg (2,000 unit) tablet ferrous sulfate 140 mg (45 mg 140 mg PO DAILY 07/12/20 04/22/25 History iron) tablet,extended release brimonidine 0.2 %-timolol 0.5 % 1 drp EACH EYE ONCE 05/30/21 04/22/25 History eye drops omega-3 fatty acids 1,000 mg 1,000 mg PO DAILY 09/26/22 04/22/25 History capsule (Fish Oil Concentrate) amlodipine 10 mg tablet See Rx Instructions .Route 11/09/24 04/22/25 Rx .COMPLEX #90 tabs pregabalin 50 mg capsule (Lyrica) 50 mg PO BID #180 caps 11/26/24 04/22/25 Rx semaglutide 1 mg/dose (4 mg/3 mL) 1 mg (0.75 mL) subcut WEEKLY #9 mL 11/26/24 04/22/25 Rx subcutaneous pen injector simvastatin 20 mg tablet See Rx Instructions .Route 11/26/24 04/22/25 Rx .COMPLEX #90 tabs valsartan 160 mg tablet See Rx Instructions .Route 11/26/24 04/22/25 Rx .COMPLEX #90 tabs dapagliflozin propanediol 10 mg 10 mg PO DAILY #90 tabs 12/11/24 04/22/25 Rx tablet (Farxiga) omeprazole 20 mg capsule,delayed 20 mg PO DAILY 8 weeks #56 caps 04/15/25 04/22/25 Rx release Allergies Allergy/AdvReac Type Severity Reaction Status Date / Time ampicillin Allergy Mild swelling Verified 05/04/25 12:14 and itching phenylephrine Allergy Mild burning Verified 05/04/25 12:14 and swelling , red eyes Vital Signs Vital Signs - 24 hr 05/04/25 12:17 Temperature 97.2 F L Pulse Rate 85 Respiratory Rate 18 Blood Pressure 103/63 Pulse Oximetry 99 Oxygen Delivery Room Air Exam Const: General: cooperative and healthy appearing Resp: Effort & Inspection: normal respiratory effort and able to speak in complete sentences Auscultation: clear to auscultation bilaterally Cardio: Rate: regular rate Rhythm: regular rhythm GI: Inspection: normal to inspection GI Palp: No No hepatosplenomegaly present Auscultation: normal bowel sounds Rectal Exam: deferred Skin: General skin exam: normal color Psych: Appearance: grossly normal Mental Status: mental status grossly normal Assessment and Plan Assessment and plan (1) Dysphagia: Code(s): R13.10 - Dysphagia, unspecified Status: Acute Assessment and Plan: The patient is deemed a good candidate for the procedure. Consent signed. Will proceed.
--- NOTE | 2025-05-04 13:52 | S_PTH ---
PATIENT: Amy Newman LOC: [facility]#:[id number] AGE/SX: 79/F ROOM: RE05/04/[address]: Tc Santiago MD : 1945 BED: DIS: 05/04/2025 SPEC #: [id number] RECD: 05/04/25 14:16 STATUS: TG RELeticia #: [id number] JABIER: 05/04/25 13:[address]: Tc Santiago DEPT: [facility] Surgical RECD BY: Chidi Agudelo ENTERED: 05/04/25 14:16 SP TYPE: Surgical OTHR DR: Chichi Carpenter APRN Tissues: A - Esophageal Biopsy Procedures: Hematoxylin and Eosin Stain Gross and Microscopic Level 4
[2025-05-04 14:02] VITALS: BP 75/39; PULSE 85; RESP 19; O2SAT 100
[2025-05-04 14:12] VITALS: BP 89/51; PULSE 81; RESP 17; O2SAT 100
[2025-05-04 14:22] VITALS: BP 102/57; PULSE 72; RESP 18; O2SAT 100
== END 2025-05-04 14:32 | disposition home or self-care (01) ==
PROVIDERS: PCP Nurse Practitioner Family; Referring Provider Nurse Practitioner Family; Visit Provider Internal Medicine Gastroenterology
PROC: 0DJ08ZZ Inspection of Upper Intestinal Tract, Via Natural or Artificial Opening Endoscopic (ICD-10-PCS; CPT 43249; principal; 2025-05-04 13:30)
DX: K21.00 Gastro-esophageal reflux disease with esophagitis, without bleeding (principal); K22.2 Esophageal obstruction; K44.9 Diaphragmatic hernia without obstruction or gangrene; E78.5 Hyperlipidemia, unspecified; D64.9 Anemia, unspecified; E11.22 Type 2 diabetes mellitus with diabetic chronic kidney disease; I12.9 Hypertensive chronic kidney disease with stage 1 through stage 4 chronic kidney disease, or unspecified chronic kidney disease; N18.30 Chronic kidney disease, stage 3 unspecified; G62.9 Polyneuropathy, unspecified; E66.9 Obesity, unspecified; Z68.31 Body mass index [BMI] 31.0-31.9, adult; Z79.82 Long term (current) use of aspirin; Z79.85 Long-term (current) use of injectable non-insulin antidiabetic drugs; Z79.84 Long term (current) use of oral hypoglycemic drugs; Z86.0100 Personal history of colon polyps, unspecified; Z87.891 Personal history of nicotine dependence; Z80.3 Family history of malignant neoplasm of breast; Z82.49 Family history of ischemic heart disease and other diseases of the circulatory system
CPT/HCPCS: 43249; 43239; 82948; 88305; C1726; J2003; J2704; J7120

== ENCOUNTER 2025-06-23 09:17 | Outpatient (CLI) | payer MEDICARE, SELFPAY ==
--- NOTE | ~2025-06-23 | MM_ITS ---
EXAMINATION: MM screening [facility] BI w [facility] HISTORY: Screening TECHNIQUE: Craniocaudal and mediolateral oblique 3-D tomosynthesis images were obtained and synthetic 2-D images were generated. CAD analysis was submitted and interpreted. COMPARISON: Comparison to multiple prior studies sequentially, with oldest reviewed study dated 11/10/2018. BREAST PARENCHYMAL COMPOSITION: Not dense: There are scattered areas of fibroglandular density. FINDINGS: There is no evidence of suspicious mass, calcification, or architectural distortion to suggest malignancy in either breast. There has been no suspicious interval change. IMPRESSION: 1. No mammographic evidence of malignancy. 2. Recommend routine screening mammography in one year. BI-RADS Category 1: Negative Reviewed, dictated and finalized at location [facility] [place]
--- NOTE | ~2025-06-23 | DEXA_ITS ---
Bone Density Report Name: ADAM DAILEY Age: 80 Sex: Female Ethnicity: Black Date of : 1945 Indication: postmenopausal; screening for osteoporosis; Referring Provider: EFREN ELAM Study: Bone densitometry was performed. Exam Date: June 23, 2025 Accession number: [id number] Bone Density: Region BMD T-score Z-score Classification AP Spine(L1-L4) 1.145 0.9 2.8 Normal Femoral Neck (Left) 0.839 -0.1 0.9 Normal Total Hip (Left) 0.858 -0.7 0.4 Normal Femoral Neck (Right) 0.783 -0.6 0.6 Normal Total Hip (Right) 0.818 -1.0 0.1 Normal Total Hip Mean 0.838 -0.9 0.3 Normal World Health Organization criteria for BMD impression classify patients as: Normal (T-score at or above -1.0), Osteopenia (T-score between -1.0 and -2.5), or Osteoporosis (T-score at or below -2.5). 10-year Fracture Risk: FRAX not reported because: All T-scores for Spine Total, Hip Total, Femoral Neck at or above -1.0 Clinical Information Provided by Patient: Has used the following medications: Vitamin D Patient maximum height was 61 Menopause Age: 51 Drinks caffeinated beverages Onset of menses at age 13 Number of children 1 Impression: The patient has normal bone mass. Discussion: BONE DENSITY IS ABOVE THE MINIMUM DESIRABLE LEVEL AT ALL SKELETAL SITES TESTED. This patient?s bone mineral density is above the minimum desirable level (T-score -1.0 or better) at all sites measured. The patient should follow a healthful lifestyle (good nutrition with adequate calcium and vitamin D, and appropriate weight-bearing exercise). Follow-Up: Consider repeating this study in 5 years or sooner if there is some new clinical indication. Reported by: TARSHA on 06/23/2025 10:06:00 AM. Reviewed, dictated and finalized at location A.
--- OUTSIDE RECORDS SUMMARY | 2025-06-23 09:23 | XMS_ITS | Clinical Summary ---
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
--- OUTSIDE RECORDS SUMMARY | 2025-06-23 09:23 | XMS_ITS | Encounter Summary ---
Author Organization [facility] Address [address] [place] [address] Care Team Providers Care Ehr Trainer Name Role Phone Darwin Britt MD Primary Care Provider [phone] Encounter Details Date Type Department Care Team (Latest Contact Info) Description 05/06/2018 Abstract [facility] , Osbaldo Tai [...] on filedocumented in this encounter Care Teams Ehr Trainer Relationship Specialty Start Date End Date Darwin Britt MD PCP - General 10/31/16 documented as of this encounter
--- OUTSIDE RECORDS SUMMARY | 2025-06-23 09:23 | XMS_ITS | Clinical Summary ---
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
--- OUTSIDE RECORDS SUMMARY | 2025-06-23 09:23 | XMS_ITS | Clinical Summary ---
Author Organization [facility] Address [address] [place] [address] Care Team Providers Care Technology Internship Name Role Phone Adrian Hernández MD Primary Care Provider [phone] Source Comments [facility],non-owned Affiliates and Associated Physician Practices is amultiple site organization consisting of ambulatory clinics and hospital sitesin [place], [place], [place] and [place]. This disclosure is being madepursuant to the Care Everywhere program and may not contain all information available regarding this patient. Last updated 18.[facility] Allergies Active Allergy Reactions Criticality Noted Date [...] by mouth 2 times daily 3 Active Family History Medical History Relation Name Comments [...] on file Legal Sex Female 9:33 AM SAMPLE PREPARATION SUPERVISOR Gender Identity Female 07/10/2023 8:47 AM SAMPLE PREPARATION SUPERVISOR Sexual Orientation Not on file Last Filed Vital Signs Vital Sign Reading Time Taken Comments Blood Pressure 122/80 08/20/2024 11:32 AM SAMPLE PREPARATION SUPERVISOR Pulse 86 08/20/2024 11:32 AM SAMPLE PREPARATION SUPERVISOR Temperature 36.6 C (97.8 F) 08/20/2024 11:32 AM SAMPLE PREPARATION SUPERVISOR Respiratory Rate 19 08/07/2023 11:26 AM SAMPLE PREPARATION SUPERVISOR Oxygen Saturation 97% 08/20/2024 11:32 AM SAMPLE PREPARATION SUPERVISOR Inhaled Oxygen Concentration - - Weight 79.8 kg (176 lb) 08/20/2024 11:32 AM SAMPLE PREPARATION SUPERVISOR Height 157.5 cm (5' 2) 08/20/2024 11:32 AM SAMPLE PREPARATION SUPERVISOR Body Mass Index 32.19 08/20/2024 11:32 AM SAMPLE PREPARATION SUPERVISOR Plan of Treatment Upcoming Encounters Date Type Department Care Team (Late st Contact Info) Description 08/26/2025 11:00 AM SAMPLE PREPARATION SUPERVISOR Office Visit [facility] - Vascular Surgery [address] [place] [id number] Oh Blair MD [address] [id number] Health Maintenance Due Date Last Done Comments [...] CALENDAR YEAR 2024 COVID-19 VACCINE (1 - 2024-2 6 season) 2025 INFLUENZA VACCINE (#1) 2025 HEPATITIS [...] patient's age to complete this topic Insurance [facility] MEDICARE ADV [facility] MANAGED MEDICARE ADV SELF PAY NO INSURANCE Member Subscriber Plan / Payer (Ef fective for All Dates) Name:Amy Benavides Member ID:Not on file Relation to Subscriber:Not on file Name:AMY BENAVIDES Subscriber ID:Not on file (Home) Address: [address] [place] [id number] Payer ID:Not on file Group ID:Not on file Type:Self Pay Address: [place], [place] [facility] MANAGED MEDICARE ADV [facility] MANAGED MEDICARE ADV Care Teams Technology Internship Relationship Specialty Start Date End Date Adrian Hernández MD [address] [place] [address] PCP - General Family Medicine 06/10/24
--- OUTSIDE RECORDS SUMMARY | 2025-06-23 09:23 | XMS_ITS | Clinical Summary ---
Author Organization [facility] Address [address] [place] [address] Care Team Providers Care Shear Operator Automatic Name Role Phone Darwin Britt MD Primary Care Provider [phone] Social History Tobacco Use Types Packs/Day Years Used Date Smoking Tobacco: Never Assessed Comments Unknown Sex and Gender Information Value Date Recorded Sex Assigned at Not on file Legal Sex Female 9:52 PM CDT Gender Identity Not on file Sexual Orientation Not on file Last Filed Vital Signs Vital Sign Reading Time Taken Comments Blood Pressure 134/82 06/15/2014 3:40 PM CABINETMAKER HELPER Pulse - - Temperature - - Respiratory Rate - - Oxygen Saturation - - Inhaled Oxygen Concentration - - Weight 93.4 kg (206 lb) 06/15/2014 3:40 PM CABINETMAKER HELPER Height 153.7 cm (5' 0.5) 06/15/2014 3:40 PM CABINETMAKER HELPER Body Mass Index 39.57 06/15/2014 3:40 PM CABINETMAKER HELPER Plan of Treatment Health Maintenance Due Date [...] Diagnosis Comments COLONOSCOPY Routine 07/01/2013 12:00 AM CABINETMAKER HELPER from Last 3 Months or Most Recently Relevant to Health Maintenance Results * Colonoscopy (07/01/2013 12:00 AM CABINETMAKER HELPER) 07/01/2013 07/01/2013 Narrative TOUCHWORKS TO EPIC CONVERSION - 07/01/2013 12:00 AM CABINETMAKER HELPER Documented hx of procedure Procedure Note Osbaldo Cates MD - 09/18/2018 Documented hx of procedure us Generic Conversion Md [facility] GI PROCEDURE ORDERABLES Final Result TOUCHWORKS TO EPIC CONVERSION from Last 3 Months or Most Recently Relevant to Health Maintenance Care Teams Shear Operator Automatic Relationship Specialty Start Date End Date Darwin Britt MD PCP - General 10/31/16
== END 2025-06-23 09:18 | disposition home or self-care (01) ==
LOC: ANHFOHIMG 09:20
PROVIDERS: PCP Nurse Practitioner Family; Visit Provider Nurse Practitioner Family
DX: Z12.31 Encounter for screening mammogram for malignant neoplasm of breast (principal); Z78.0 Asymptomatic menopausal state
CPT/HCPCS: 77063; 77067; 77080

== ENCOUNTER 2025-06-23 10:15 | Emergency (ER) | payer MEDICARE, SELFPAY ==
[2025-06-23 10:26] VITALS: BP 136/74; PULSE 76; RESP 18; TEMP 36.8; O2SAT 99
--- NOTE | 2025-06-23 10:27 | ED.FEMALEGU ---
HPI - Female Genitourinary General Chief complaint: Urogenital-Female Stated complaint: Uraniary issues Time Seen by Provider: 06/23/25 10:41 Source: patient, RN notes reviewed and old records reviewed Mode of arrival: ambulatory Limitations: no limitations History of Present Illness HPI Narrative: 80-year-old female presents to the [facility] with 1 week of lower, suprapubic cramping, nausea, frequency and urgency with urination. Denies any burning. Did try azo. Did also take some leftover ciprofloxacin. Cipro per box in was prescribed in September of 2023. Denies any generalized abdominal pain. No CVA tenderness. Denies burning with urination. Denies fevers Onset (ago): week(s) (1) Related Data Home Medications ?Medication ?Instructions ?Recorded ?Confirmed ?Last Taken ?Type aspirin 81 mg chewable tablet 81 mg PO DAILY 11/14/19 05/19/25 Unknown History ferrous sulfate 140 mg (45 mg 140 mg PO DAILY 07/12/20 05/19/25 Unknown History iron) tablet,extended release brimonidine 0.2 %-timolol 0.5 % 1 drp EACH EYE ONCE 05/30/21 05/19/25 Unknown History eye drops omega-3 fatty acids 1,000 mg 1,000 mg PO DAILY 09/26/22 05/19/25 Unknown History capsule (Fish Oil Concentrate) Allergies Allergy/AdvReac Type Severity Reaction Status Date / Time ampicillin Allergy Mild swelling Verified 06/23/25 10:37 and itching phenylephrine Allergy Mild burning Verified 06/23/25 10:37 and swelling , red eyes Review of Systems Review of Systems: All systems reviewed & are unremarkable except as noted in HPI and below Constitutional: Constitutional: Reports no additional constitutional complaints ENT: Reports system reviewed and no additional complaints, except as documented Cardiovascular: Cardiovascular: Reports no additional cardiovascular complaints, Denies chest pain and Denies dyspnea Respiratory: Respiratory: Reports no additional respiratory complaints, Denies chest congestion, Denies cough and Denies dyspnea Genitourinary: Genitourinary: Reports as per HPI Musculoskeletal: Musculoskeletal: Reports no additional musculoskeletal complaints Integumentary/Breasts: Skin/Breast: Reports system reviewed and no additional complaints, except [facility] Past Medical History Medical History Hiatal hernia Esophageal stricture GERD (gastroesophageal reflux disease) Paresthesia of skin Screening for colon cancer Postmenopausal Anemia Peripheral neuropathy Hypertension Colonic polyp Type 2 diabetes mellitus Family History Family History Father Family history of Alzheimer's disease, Onset Age: 86 Family history of heart disease in male family member before age 55, Onset Age: 86 Patient's father is , Onset Age: 86 Mother Family history of diabetes mellitus in first degree relative Family history of congestive heart failure Family history of hearing loss Sibling Family history of malignant neoplasm of breast in first degree relative Social History Social History Smoking packs per day: 0.25 Smoking cigarettes per day: 5.0 Years smoked: 20 Smoking pack-years: 5.00 Smoking status: Former smoker Tobacco type: cigarettes Second hand tobacco smoke exposure: No Smoking end date: 07/01/09 Alcohol intake: current Drinks per week: 2 Alcohol use details: occasionally Substance use: never Substance use type: does not use Lack of Transportation: No Lack of Food: Never True Current Housing: I Have Housing Concerned About Future Housing: No Difficulty Paying Gas/Electric Bills: No Difficulty Paying for Meds: No Currently Unemployed: No Education: Decline to Answer Difficulty w/ Childcare or Family Care: No Living arrangements: with family Additional living arrangements comments: with so Occupation/Education: retired Gender identity (if verbalized by the patient): Female Sexual Orientation (if Verbalized by the Patient): Straight or Heterosexual Spiritual care concerns: No Agree to blood products: Yes Comments At the time of my signature, I reviewed and agree with the nursing past medical, surgical, social, and family history. There is no relevant family history pertinent to the patient complaint. Exam Const: General: cooperative, healthy appearing, comfortable, no acute distress, well developed, alert and well nourished Nutritional Appearance: well nourished Orientation/consciousness: patient oriented x3 Limitations: no limitations HENMT: Head: normal to inspection Eyes: General: appearance normal, both eyes and all related structures Alignment and Position: alignment normal Neck: Neck: normal visual inspection, full ROM, no lymphadenopathy and no meningeal signs Chest: Chest palpation & inspection: normal inspection of the chest Resp: Effort & Inspection: normal respiratory effort and able to speak in complete sentences Cardio: Rate: regular rate GI: GI Palp: No abdominal tenderness : General: Yes no CVA tenderness Skin: General skin exam: normal color and no rashes or lesions noted Neuro: General: patient oriented x3, gait normal, moves all extremities and no meningeal signs Cognition (Neuro): normal cognition Speech: normal speech Gait exam (Neuro): Normal gait present Extrem: General: normal to inspection, full ROM, capillary refill normal and normal gait Psych: Appearance: grossly normal and well kempt Mental Status: mental status grossly normal Speech and movement: Normal speech and movement present and Clear speech present Affect: normal affect Attitude: cooperative Course Course Level of Care: Express Care Visit Vital Signs Vital signs: Vital Signs Temperature 98.2 F 06/23/25 10:26 Pulse Rate 76 06/23/25 10:26 Respiratory Rate 18 06/23/25 10:26 Blood Pressure 136/74 06/23/25 10:26 Pulse Oximetry 99 06/23/25 10:26 Oxygen Delivery Room Air 06/23/25 10:26 Temperature 98.2 F 06/23/25 10:26 Pulse Rate 76 06/23/25 10:26 Respiratory Rate 18 06/23/25 10:26 Blood Pressure 136/74 06/23/25 10:26 Pulse Oximetry 99 06/23/25 10:26 Oxygen Delivery Room Air 06/23/25 10:26 reviewed MDM MDM Narrative Medical decision making narrative: Patient sitting in exam room. Patient is nontoxic, vitals stable. Patient presents with urinary symptoms x1 week. Patient's also has glucose, blood sugar in clinic was 115. Will cover with an antibiotic, sent for culture, encourage patient that if symptoms continue to follow-up with primary care provider which she verbalized understanding. Discharge instructions reviewed with patient, as well as provided in writing per nursing staff. The instructions also include specific and strict return/GO TO THE ER as well as f/u information. All questions have been answered, and the patient deny any further questions with discharge and discharge plan. Some parts of this dictation were generated by voice recognition software and may contain typographical and/or grammatical inaccuracies. Differential Diagnosis Differential Diagnosis: Differential diagnostic considerations for female urogenital? issues include urinary tract infection, bacterial vaginosis, cervicitis, ovarian cyst, vaginitis, STI exposure, ovarian torsion, ectopic , cyst of Bartholin?s gland, cystitis, dysmenorrhea.?? Lab Data Labs: Lab Results 06/23/25 06/23/25 Range/Units 10:32 10:48 POC Capillary Glucose 115 H (65-105) mg/dl POC Urine Color Yellow POC Urine Clarity Clear POC Urine pH 6.5 POC Ur Specif Timbo 1.010 POC Urine Protein Negative (Negative) POC Ur Glucose (UA) 2+ (Negative) POC Urine Ketones Negative (Negative) POC Urine Blood Negative (Negative) POC Urine Nitrite Negative (Negative) POC Urine Bilirubin Negative (Negative) POC Urine Urobilinogen 0.2 POC U Leukocyte Esteras Trace (Negative) Reviewed Discharge Plan Discharge Clinical Impression: Dysuria Patient Disposition: Home Condition: Stable Instructions: Antibiotic Form, Dysuria (ED) Additional Instructions: You should never have ?left over antibiotics. ? If you happen to have them please never taken before being evaluated by a care provider Increased water intake Take Tylenol as needed for pain Take antibiotic as prescribed Today your urine dip showed a probability of a UTI. You have been prescribed an antibiotic. Your urine will be sent to our lab for a culture. If at that time a bacteria grows that is not covered by the antibiotic prescribed you will be notified. Follow-up with primary care For new or worsening symptoms go directly to the emergency room Patient Language: Faroese Prescriptions: New cephalexin 500 mg capsule 500 mg PO Q12H Qty: 10 0RF No Action Combigan 0.2-0.5 % drops 1 drp EACH EYE ONCE omega-3 fatty acids [Fish Oil Concentrate] 1,000 mg capsule 1,000 mg PO DAILY lansoprazole [Prevacid 24Hr] 15 mg capsule,delayed release(DR/EC) 15 mg PO DAILY 30 Days Qty: 30 5RF ferrous sulfate 140 mg (45 mg iron) tablet extended release 140 mg PO DAILY pregabalin [Lyrica] 50 mg capsule 50 mg PO BID Qty: 180 1RF simvastatin 20 mg tablet See Rx Instructions .ROUTE .COMPLEX Qty: 90 1RF Dose Instruction: Take 1 tablet by mouth in the evening Rx Instructions: Take 1 tablet by mouth in the evening valsartan 160 mg tablet See Rx Instructions .ROUTE .COMPLEX Qty: 90 1RF Dose Instruction: Take 1 tablet by mouth once daily Rx Instructions: Take 1 tablet by mouth once daily aspirin 81 mg Tablet,Chewable 81 mg PO DAILY cholecalciferol (vitamin D3) 50 mcg (2,000 unit) tablet 50 mcg PO DAILY Qty: 90 1RF Farxiga 10 mg tablet 10 mg PO DAILY Qty: 90 3RF semaglutide 1 mg/dose (4 mg/3 mL) pen injector 1 mg subcut WEEKLY Qty: 9 4RF amlodipine 10 mg tablet See Rx Instructions .ROUTE .COMPLEX Qty: 90 1RF Dose Instruction: TAKE 1 TABLET BY MOUTH DAILY Rx Instructions: TAKE 1 TABLET BY MOUTH DAILY Follow-up/Referrals: Adrian Hernández MD [Primary Care Provider, Family Practice] Time of Disposition: 10:54
[2025-06-23 10:35] LABS: EDUAAPPEAR Clear; EDUABILI Negative (Negative); EDUABLOOD Negative (Negative); EDUACOLOR1 Yellow; EDUAGLUCOSE 2+ (Negative); EDUAKETONE Negative (Negative); EDUALEUKO Trace (Negative); EDUANITRATE Negative (Negative); EDUAPH 6.5; EDUAPROTEIN Negative (Negative); EDUASPGRAVITY 1.010; EDUAUROBILI 0.2
== END 2025-06-23 10:58 | disposition home or self-care (01) ==
PROVIDERS: Emergency Provider Nurse Practitioner; PCP Family Medicine
DX: R30.0 Dysuria (principal); I10 Essential (primary) hypertension; E11.42 Type 2 diabetes mellitus with diabetic polyneuropathy; Z79.85 Long-term (current) use of injectable non-insulin antidiabetic drugs; K21.9 Gastro-esophageal reflux disease without esophagitis; Z79.82 Long term (current) use of aspirin; D64.9 Anemia, unspecified; Z87.891 Personal history of nicotine dependence
CPT/HCPCS: 81003; 82948; 87086; 99213; G0463